=== PATIENT | female | born 1935 | race Caucasian/White ===

== ENCOUNTER 2017-01-31 01:09 | Inpatient (IN) ==
--- NOTE | 2017-01-31 04:19 | Internal Med History&Physical ---
<Gene Lopez - Last Filed: 01/31/17 04:58> Date of Encounter: 01/31/17 Time of Encounter: 04:04 Assessment and Plan (1) Gallbladder abscess Current visit: Yes Status: Acute Patient resting, vitals and labs stable. CT Abdomen: 1. There is a large loculated, septated mass in the right upper quadrant of the abdomen, likely related to sequela of subacute/chronic cholecystitis where there are areas of inflammation in the surrounding soft tissues. These areas of loculation may represent focal abscesses within the wall of the gallbladder. Given the extent of the patient's lung disease and cardiac history she is high risk for surgical intervention. Her current lung condition would likely make her a poor candidate for extubation. Plan: - EKG - Echocardiogram - Pulmonology consult - Antibiotic coverage: Ciprofloxacin and Flagyl - Blood cultures - Gen. surgery consult. (2) COPD (chronic obstructive pulmonary disease) Current visit: Yes Status: Acute Patient with severe COPD, denies oxygen use at home. Patient has barrel chest, very poor bronchial vesicular breath sounds with diminished breath sounds diffusely. Plan: - Continue home inhalers - Dual nebs when necessary - Oxygen as required. - Pulmonology consult prior to surgical option. Qualifiers: Qualified Code(s): J44.9 - Chronic obstructive pulmonary disease, unspecified (3) CAD (coronary artery disease) Current visit: Yes Status: Acute Known CAD, previous smoker and hx of coronary stent. No current EMR records. - Continue Current CAD coverage. Qualifiers: Qualified Code(s): I25.10 - Atherosclerotic heart disease of [place] coronary artery without angina pectoris (4) DVT prophylaxis Current visit: Yes Status: Acute Lovenox 40mg daily Internal Medicine - H&P: HPI History of present illness: Ms. Begum is a 81 year old female with Severe COPD, thyroid disease, CAD, cardiac stent, HLD transferred from outside hospital with finding of gallbladder abscess. Ms. Begum says that over the last 4 weeks she has had difficulty with swallowing and some right upper quadrant abdominal discomfort/ pain. She says that the pain is constant but has not been unbearable. It did not take her appetite but occasionally she would have some regurgitation of clear frothy white mucus. She denies any fevers, chills, sweating, chest pain or palpitations or shortness of breath outside of her normal. She has any diarrhea constipation or bloating. She says that the right upper quadrant tenderness is only been present for 4 weeks and that she has followed up with her PCP who started her on Zantac for GERD. Her symptoms were not improving so she followed up with her PCP who did a abdominal and chest x-ray which she said the PCP was not happy with and ordered an abdominal CT. She said she was notified yesterday that the abdominal CT was abnormal and that she should be seen right away. She denies any other concerns at this time and feels at her baseline. She is hungry and asked if she is able to eat. Past Med Surg Social Fam HX - Past Medical History Medical history: CHF, COPD, hyperlipidemia, hypertension, myocardial infarction , thyroid disease, other Psychiatric history: anxiety, depression - Social History Smoking Status: Former smoker Smokeless Tobacco Status: No Alcohol use: none Drug use: none Internal Medicine - H&P: Meds Albuterol Neb [Proventil Neb] 2.5 mg IH Q8H PRN 10/06/16 [History] Albuterol Sulfate [Albuterol Inhaler] 2 puff IH Q4HR PRN 10/06/16 [History] Aspirin Enteric Coated [Aspirin EC] 81 mg PO DAILY 10/06/16 [History] Calcium Carbonate [Calcium] 500 mg PO DAILY 10/06/16 [History] Calcium Carbonate/Vitamin D3 [Calcium 500 + Vit D 200 Caplet] 1 each PO DAILY [History] Cyanocobalamin (Vitamin B-12) [Vitamin B-12] 1,000 mcg SL DAILY 10/06/16 [ History] Escitalopram [Lexapro] 20 mg PO DAILY 10/06/16 [History] Ferrous Sulfate [Iron] 325 mg PO BID 10/06/16 [History] Folic Acid 0.8 mg PO DAILY 10/06/16 [History] Furosemide [Lasix] 40 mg PO DAILY 10/06/16 [History] Gabapentin [Neurontin] 400 mg PO TID 10/06/16 [History] HYDROcodone/Acet 5/325 mg [[place] 5-325 mg] 1 tab PO Q6H PRN #20 tab 10/06/16 [Rx ] LORazepam [Ativan] 0.5 mg PO HS 10/06/16 [History] Levothyroxine [Synthroid] 100 mcg PO 0630 10/06/16 [History] Loratadine [Allergy Relief] 10 mg PO DAILY 10/06/16 [History] Ondansetron [Zofran] 4 mg PO Q8HR #10 tablet 10/06/16 [Rx] Quetiapine Fumarate [Seroquel] 50 mg PO HS 10/06/16 [History] Ropinirole HCl [Requip] 2 mg PO HS 10/06/16 [History] Tiotropium [Spiriva] 18 mcg IH 0700 10/06/16 [History] Tramadol HCl [Ultram] 50 mg PO QID PRN 10/06/16 [History] Allergies No Known Allergies Allergy (Verified 10/06/16 08:28) All Systems PM: A 10-system review of systems was performed and is negative for pertinent findings except as documented above in the HPI. - Constitutional Constitutional: no chills, no fever(s), no night sweats - EENT Eyes: no change in vision, no discharge, no pain, no photophobia Ears: no ear discharge, no ear pain, no tinnitus Nose, mouth and throat: no dysphagia, no nasal discharge, no neck pain, no sore throat - Cardiovascular Cardiovascular ROS IM: no chest pain, no diaphoresis, no dyspnea, no lightheadedness, no palpitations, no syncope - Respiratory Respiratory: no cough, no dyspnea, no wheezing, no excessive phlegm production - Gastrointestinal Gastrointestinal: abdominal pain, nausea, vomiting, no diarrhea, no hematemesis , no hematochezia, no melena - Genitourinary Genitourinary: no change in urinary stream, no dysuria, no flank pain, no hematuria - Musculoskeletal Musculoskeletal ROS IM: no numbness, no tingling - Integumentary Integumentary IM: no rash, no unusual bruising - Neurological Neurological ROS: no confusion, no convulsions, no focal weakness, no numbness, no tingling, no tremor(s) - Hematologic/Lymphatic Hematologic/Lymphatic: no easy bruising - Constitutional Vitals: Temp Pulse Resp BP Pulse Ox 98.2 F 75 17 138/71 96 01/31/17 03:08 01/31/17 03:08 01/31/17 03:08 01/31/17 03:08 01/31/17 03:08 Exam: General: Patient alert, awake, oriented 3, interactive, in no acute distress HEENT: Cachectic appearing with sunken temporal region, atraumatic, pupils equal reactive to light, nasal cavity patent and open septum median position, oral mucosa moist, poor dentition, neck supple trachea midline no palpable lymphadenopathy, no thyromegaly. There is secondary muscle use with respiratory effort. Chest: Barrel chest with secondary neck muscle use and poor thoracic relaxation with exhalation. Cardiac: Regular rate and rhythm, grade 2/6 systolic ejection murmur no bruits appreciated bilateral carotids, Radial pulses 2+ bilateral, posterior tibial and dorsal pedal pulses 2+ bilateral. Respiratory: Diffuse crackles with diminished bronchial vesicular breath sounds and an expiratory wheeze. Abdomen: Soft, nontender, positive bowel sounds, palpable mass in the right upper quadrant Extremities: Symmetric bilateral, bilateral lower extremities without erythema or edema patient moving all 4 extremities spontaneously. Neurologic: No focal deficits appreciated on examination. Face symmetric, muscle strength symmetric bilateral upper and lower extremities. <Rubin Zavaleta - Last Filed: 01/31/17 06:23> Date of Encounter: 01/31/17 Past Med Surg Social Fam HX - Past Medical History Attestation: Yes The following information was validated with the patient. Source: patient, other (transfer records) Medical history: COPD, myocardial infarction, thyroid disease - Past Surgical History Surgical History: orthopedic, other (foot surgery) - Family History Mother Living Status: Hx Family Respiratory Disorders: Yes Father Living Status: Hx Family Cardiac Disorders: No Hx Family Respiratory Disorders: Yes - Constitutional Vitals: Temp Pulse Resp BP Pulse Ox 98.2 F 75 17 138/71 96 01/31/17 03:08 01/31/17 03:08 01/31/17 03:08 01/31/17 03:08 01/31/17 03:08 General appearance: Present: cooperative, A&O X 3, pleasant, no acute distress - Head Head exam: Present: normal inspection - Eye Eye exam: Present: EOMI, PERRL. Absent: scleral icterus Pupils: Present: normal accommodation - ENT ENT exam: Present: mucous membranes dry, normal exam - Neck Neck exam general surgery: Present: supple. Absent: tenderness - Expanded Neck Exam Neck exam: Absent: carotid bruit - Respiratory Respiratory exam: Present: decreased breath sounds, prolonged expiratory phase, rales, wheezes. Absent: chest wall tenderness, respiratory distress, rhonchi Additional comments: dry crackles suggestive of fibrotic lung disease auscultated on exam - Cardiovascular Cardiovascular exam: Present: RRR, +S1, +S2, systolic murmur (grade 2). Absent : diastolic murmur, irregular rhythm, JVD Additional comments: significant barrel chest on gross exam - GI/Abdominal GI/Abdominal exam: Present: guarding, mass (palpable soft, tender mass/GB just below the right ribs), normal bowel sounds, soft, tenderness. Absent: rebound, splenomegaly - Extremities Exam Extremities exam: Present: full ROM, warm. Absent: calf tenderness, joint swelling, pedal edema - Back Exam Back exam: Absent: CVA tenderness (L), CVA tenderness (R) - Neurological Exam Neurological exam: Present: alert, CN II-XII intact, oriented X3, no focal deficits - Psychiatric Psychiatric exam: Present: normal affect, normal mood - Skin Skin exam: Present: dry, warm. Absent: rash Internal Med - H&P Results - Diagnostic Studies Chest x-ray Status: image reviewed by me (barrel chest, fibrotic/interstitial pattern of lung disease noted ) CT scan - abdomen Status: image reviewed by me (large GB/mass adjacent to and below liver) - Attending Attestation I discussed the patient [place], PMH, ROS, lab data, and exam findings with Dr. Lopez. I then saw and examined patient independently as well. Pt notes significant RUQ pain and symptoms for the last 2-3 weeks. Symptoms have become almost unbearable over the last few days, prompting her to go to the ER [facility]. Work-up revealed significant GB disease on CT of abdomen concerning for GB abscess. Based upon history and exam, this appears chronic. Nonetheless , her symptoms are getting worse over the last few weeks. She will eventually need surgery. However, she carries a significant risk for perioperative morbidity and mortality from her lung and heart disease. Therefore, I recommend maximizing pulmonary status now and consulting Pulmonary for guidance pre-op and assistance post-operatively. She will likely be a difficult extubation. Additionally, she has heart disease and prior VT. She has not exhibited any anginal symptoms in the recent past historically; however, she has been mostly sedentary. Pre-op ECHO will help determine her LVEF. We'll obtain EKG as well. I agree with antibiotic choices. I already spoke with Dr. Galindo and recommend cautious operative approach after above work-up, specialty consultation, and GB ultrasound imaging. Other than my comments noted above and exam findings, I agree with Dr. Lopez's assessment and plan.
[2017-01-31] MEDS ORDERED: *HR* Morphine 2 MG/ML SYRINGE IVP PRN (04:32)
[2017-01-31] MEDS ORDERED: Ondansetron ODT 4 MG TAB.RAPDIS SL PRN (04:32)
[2017-01-31] MEDS ORDERED: Naloxone 0.4 MG/ML INJ IVP PRN (04:32)
[2017-01-31] MEDS ORDERED: Acetaminophen 325 MG TABLET PO PRN (04:32)
[2017-01-31] MEDS ORDERED: Ipratropium/Albuterol Neb 3 ML IH PRN (04:39)
[2017-01-31] MEDS ORDERED: Albuterol 2.5 MG/3 ML NEBULIZER IH PRN (04:58)
[2017-01-31] MEDS ORDERED: *HR* Enoxaparin 40 MG/0.4 ML SYRINGE SQ SCH (06:00)
[2017-01-31] MEDS: Pantoprazole 40 MG VIAL IVP SCH (06:13)
[2017-01-31 06:51] LABS: Basophils % 0.5 %; Eosinophils # 0.2 K/mcL (0.0-0.6); Eosinophils % 2.9 %; Hematocrit 31.8 % (35.3-44.9); Hemoglobin 9.8 g/dL (11.5-15.4); Immature Granulocytes % 0.2 % (0-4); Lymphocytes % 12.5 %; Mean Corpuscular HGB Conc 30.8 g/dL (31.6-35.5); Mean Corpuscular Hemoglobin 30.6 pg (28.0-33.3); Mean Corpuscular Volume 99.4 fL (83.0-100.0); Mean Platelet Volume 9.3 fL (9.4-12.4); Monocytes # 0.7 K/mcL (0.0-1.3); Monocytes % 8.3 %; Neutrophils # 6.2 K/mcL (1.6-8.9); Platelet Count 304 K/mcL (140-400); Red Cell Distribution Width 13.9 % (11.5-14.5); Segmented Neutrophils % 75.6 %
[2017-01-31 06:59] LABS: Albumin 2.7 g/dL (3.5-5.0); Albumin/Globulin Ratio 0.6 (1.1-2.2); Alkaline Phosphatase 132 Units/L (38-126); Aspartate Amino Transferase 11 Units/L (5-34); BUN/Creatinine Ratio 11 (6-26); Bilirubin,Total 0.4 mg/dL (0.2-1.2); Blood Urea Nitrogen 14 mg/dL (7-20); Calcium 9.2 mg/dL (8.6-10.8); Carbon Dioxide 34 mEq/L (19-29); Chloride 98 mEq/L (98-109); Globulin 4.5 g/dL (2.4-3.5); Glucose 93 mg/dL (70-99); Osmolality,Calculated 284 (280-300); Potassium 4.1 mEq/L (3.5-4.5); Sodium 137 mEq/L (136-145); Total Protein 7.2 g/dL (6.0-8.3); eGFR For African Americans 49 (> 60); eGFR For Non-African Americans 40 (> 60)
[2017-01-31 07:00] LABS: Alanine Aminotransferase < 6 Units/L (0-55)
[2017-01-31] MEDS ORDERED: Tiotropium 18 MCG inhalation IH SCH (07:00)
[2017-01-31] MEDS: MetroNIDAZOLE 500 MG/100 ML 500 MG/100 ML BAG IVPB SCH ×2 (08:12→15:57)
[2017-01-31] MEDS: Aspirin Enteric Coated 81 MG Tablet PO SCH (09:56)
[2017-01-31] MEDS: Gabapentin 400 MG CAPSULE PO SCH ×3 (09:56→21:09)
--- NOTE | 2017-01-31 11:55 | Pulmonology Consult Note ---
Date of Encounter: 01/31/17 Time of Encounter: 10:15 Assessment and Plan (1) COPD (chronic obstructive pulmonary disease) Current Visit: Yes Status: Acute Based upon the patient's history as well as her physical examination findings, I suspect that she has quite advanced COPD. The Chem-7 study suggests elevation of the bicarbonate which may be a marker for hypercapnia (ABG is pending). Hypercapnia in this particular individual would bespeak of advanced COPD (in the absence of pulmonary function studies). Although the patient claims she is able to perform volitional activities and care for herself and spouse in the home setting (as well as pets) I suspect she is quite limited from a functional viewpoint. I recommend use of Duoneb nebulized treatments and a short course of systemic steroids to optimize patient's pulmonary status. Obviously, if the patient requires cholecystectomy, this will be a high risk undertaking from a pulmonary viewpoint. I reviewed my impressions with the patient. Qualifiers: COPD type: unspecified COPD Qualified Code(s): J44.9 - Chronic obstructive pulmonary disease, unspecified Code(s): J44.9 - Chronic obstructive pulmonary disease, unspecified SNOMED Code(s): 12410524 History of Present Illness Consult date: 01/31/17 Chief complaint: Abdominal pain, nausea and vomiting History of present illness: This 81-year-old female former cigarette smoker with underlying COPD among other medical issues was admitted to the hospital with complaints of right upper quadrant abdominal discomfort and nausea and vomiting. She is noted the symptoms present for the past several weeks. Over that timeframe, she is also developed anorexia. She denied fevers or chills given these complaints, she sought emergency room evaluation was admitted to the hospital with concern for possible acute cholecystitis. Further evaluation in reference to this issue is still pending including surgical consultation. Patient has at least a 40+-pack-year smoker claiming to have stopped 7 years ago. She utilizes albuterol nebulized treatments in the home setting. She may also utilize another in nondisclosed inhaler (she is unaware of any particular names however). She claims that she is able to perform activities within the home setting with some limitation. She apparently drives and shops and cares for dogs and other pets in the home setting. She notes exertional breathlessness but if she walks at paced rate she is able to perform all volitional activities. She notes difficulty climbing several stairs in reference to breathlessness. She notes a chronic cough in the morning with mucoid sputum expectoration lessened teaspoon on a daily basis. She denies recent admissions to hospital for treatment of respiratory insufficiency or emergency room evaluations for treatment of respiratory symptoms. Past Med Surg Social Fam HX - Past Medical History Medical history: COPD, myocardial infarction, thyroid disease Psychiatric history: anxiety, depression - Past Surgical History Surgical History: orthopedic, other (foot surgery) - Social History Smoking Status: Former smoker Smokeless Tobacco Status: No Alcohol use: none Drug use: none - Family History Mother Living Status: Hx Family Respiratory Disorders: Yes Father Living Status: Hx Family Cardiac Disorders: No Hx Family Respiratory Disorders: Yes Medications and Allergies Albuterol Neb [Proventil Neb] 2.5 mg IH Q8H PRN 10/06/16 [History] Albuterol Sulfate [Albuterol Inhaler] 2 puff IH Q4HR PRN 10/06/16 [History] Aspirin Enteric Coated [Aspirin EC] 81 mg PO DAILY 10/06/16 [History] Calcium Carbonate [Calcium] 500 mg PO DAILY 10/06/16 [History] Calcium Carbonate/Vitamin D3 [Calcium 500 + Vit D 200 Caplet] 1 tab PO DAILY [History] Cyanocobalamin (Vitamin B-12) [Vitamin B-12] 1,000 mcg SL DAILY 10/06/16 [ History] Escitalopram [Lexapro] 20 mg PO DAILY 10/06/16 [History] Ferrous Sulfate [Iron] 325 mg PO BID 10/06/16 [History] Folic Acid 0.8 mg PO DAILY 10/06/16 [History] Furosemide [Lasix] 40 mg PO DAILY 10/06/16 [History] Gabapentin [Neurontin] 400 mg PO DAILY 10/06/16 [History] LORazepam [Ativan] 0.5 mg PO HS 10/06/16 [History] Levothyroxine [Synthroid] 100 mcg PO 0630 10/06/16 [History] Loratadine [Allergy Relief] 10 mg PO DAILY 10/06/16 [History] Ondansetron [Zofran] 4 mg PO Q8HR #10 tablet 10/06/16 [Rx] Quetiapine Fumarate [Seroquel] 50 mg PO HS 10/06/16 [History] Ropinirole HCl [Requip] 2 mg PO HS 10/06/16 [History] Tramadol HCl [Ultram] 100 mg PO Q4H PRN 10/06/16 [History] Ranitidine HCl [Zantac] 150 mg PO BID 01/31/17 [History] Allergies No Known Allergies Allergy (Verified 10/06/16 08:28) All Systems: A 10-system review of systems was performed and is negative for pertinent findings except as documented above in the HPI. - Constitutional Constitutional: as per HPI - Cardiovascular Cardiovascular: as per HPI - Respiratory Respiratory: as per HPI - Gastrointestinal Gastrointestinal: as per HPI Physical Examination Vital Signs: Vital Signs, Last 4 Hours Temp Pulse Resp BP Pulse Ox 01/31/17 10:55 97.6 F 72 17 110/62 95 General appearance: no acute distress, other (The patient appears much older than her stated age awake and alert.) Eyes: nonicteric ENT: oropharynx moist, other (Impaired dentition) Effort: mildly labored Inspection: kyphosis Auscultation: bilateral: diminished breath sounds, other (Prolonged expiratory phase, very faint end expiratory wheeze bilaterally.) Cardiovascular: regular rate and rhythm, murmur noted (Gallop) Gastrointestinal: normoactive bowel sounds, other (Mild tenderness right upper quadrant palpation) Integumentary: normal Extremities: no cyanosis Musculoskeletal: no deformities normal mental status, non-focal exam Results - Laboratory Findings CBC and BMP: 01/31/17 06:22 01/31/17 06:22 Abnormal lab findings: Abnormal lab results RBC 3.20 M/mcL (3.82-4.97) L 01/31/17 06:22 Hgb 9.8 g/dL (11.5-15.4) L 01/31/17 06:22 Hct 31.8 % (35.3-44.9) L 01/31/17 06:22 MCHC 30.8 g/dL (31.6-35.5) L 01/31/17 06:22 MPV 9.3 fL (9.4-12.4) L 01/31/17 06:22 Carbon Dioxide 34 mEq/L (19-29) H 01/31/17 06:22 Creatinine 1.27 mg/dL (0.57-1.11) H 01/31/17 06:22 Est GFR ( Amer) 49 (> 60) L 01/31/17 06:22 Est GFR (Non-Af Amer) 40 (> 60) L 01/31/17 06:22 POC Glucose 103 (58-89) H 01/31/17 11:17 Alkaline Phosphatase 132 Units/L (38-126) H 01/31/17 06:22 Albumin 2.7 g/dL (3.5-5.0) L 01/31/17 06:22 Globulin 4.5 g/dL (2.4-3.5) H 01/31/17 06:22 Albumin/Globulin Ratio 0.6 (1.1-2.2) L 01/31/17 06:22 - Clinical Findings Intake & Output: Intake & Output 01/30/17 01/31/17 01/31/17 23:59 07:59 15:59 Intake Total 100 / 100 100 / 100 Output Total 0 / 0 350 / 350 Balance 100 / 100 -250 / -250 Weight 56.427 kg Consult Discharge Plan - Plan Referrals: Chris Leo, [facility] [Primary Care Provider] -
--- NOTE | 2017-01-31 15:22 | General Surgery Consult Note ---
Date of Encounter: 01/31/17 Time of Encounter: 13:30 History of Present Illness Requesting physician: Rubin Zavaleta History of present illness: 81-year-old female transferred to [facility] from [facility] after presenting there at the instructions of her primary provider for further evaluation and treatment of an abnormal CT. The patient apparently has had abdominal pain nausea and vomiting for the past 3 weeks. As a result of these symptoms patient has been anorexic but denies any fevers, chills, or jaundice. A palpable tender mass was readily apparent in the right upper quadrant. CT of the abdomen and pelvis demonstrated bilateral areas of atelectasis with associated areas scarring and bronchiectasis right lower lobe right middle lobe. History of previous pulmonary infection is noted. A suspected subacute/chronic cholecystitis with markedly enlarged gallbladder measuring approximately 9.9 x 9.4 x 9.8 cm with multi focal septation as described. Gallstones are displaced throughout the gallbladder lumen. Mild induration in the surrounding fat, most pronounced along the inferior margin is also described. Colon was notable for numerous scattered diverticula without adjacent inflammatory changes, no evidence of bowel obstruction. The patient was apparently told that she had a ruptured or perforated gallbladder with instructions to present to the emergency department [facility]. The patient presented to [facility] with ultimate transfer to [facility] for further medical and surgical care/intervention. Since transfer, the N/V and abd tenderness has resolved. Past medical history: Severe COPD; coronary artery disease with history of coronary stent(s) and history of prior NC. No angina pectoris. Hypertension, Hypothyroidism, hyperlipidemia, anxiety, depression Surgical history: Orthopedic fixation pelvic fracture and foot surgery; no described transabdominal surgeries Allergies: No known drug allergies Medications: Albuterol nebulizer 2.5 mg inhaled every 8 hours when necessary Albuterol sulfate inhaler 2 puffs every 4 hours when necessary Aspirin 81 mg by mouth daily Calcium carbonate 500 mg by mouth daily Calcium carbonate/vitamin D3 (calcium 500 mg plus vitamin D 200 mg) one by mouth daily Cyanocobalamin 1000 g sublingually daily Escitalopram 20 mg by mouth daily Ferrous sulfate 325 mg by mouth twice a day Gabapentin 4 mg by mouth 3 times a day Hydrocodone/acetaminophen 5/325 one by mouth every 6 hours when necessary for pain (this prescription appears ) Lorazepam 0.5 mg by mouth daily at bedtime Levothyroxine 100 g by mouth daily Loratadine 10 mg by mouth daily Ondansetron 4 mg by mouth every 8 hours as needed for nausea/vomiting Quetiapine 50 mg by mouth daily at bedtime Ropinirole 2 mg by mouth daily at bedtime Tiotropium 18 g inhaled Tramadol 50 mg by mouth daily ID when necessary for pain Social history: Patient is a smoker admitting to 1 pack per day for over 50 years; she quit approximately 7 years ago. G2, P0, Ab2 Patient denies any alcohol or illicit drug use Physical examination: Elderly female who appears older than her stated age; currently in no acute distress Afebrile, 98.4; pulse 62, respirations 16, blood pressure 132/67. SPO2 on 2 L/m nasal cannula 95-98% Dentition in extremely poor condition with significant overbite Lungs: Chest is kyphotic with pronounced increased A-P diameter. Diffusely diminished breath sounds, faint expiratory wheezes noted bilaterally. Cardiac: Regular rate Abdomen: Nontender, scaphoid with palpable mass right upper quadrant/mid clavicular line. This mass is currently nontender but has been described as tender on presentation to [facility]. Hypoactive bowel sounds. Extremities: Significant joint deformities involving both hands. Laboratories: White count 8.2, hemoglobin 9.8, hematocrit 31.8. Hemoglobin 11.3 /hematocrit 37.5 as late as 09/16/16. Platelet count 304,000. Sodium 137, potassium 4.1, chloride 98, bicarbonate 34, BUN 14, creatinine 1.27. Range 0.94-1.27 dating to 04/24/2015) Total bilirubin 0.4, AST 11, ALT less than 6, alkaline phosphatase 132. Total serum protein 7.2, albumin 2.7. CT and USGB were personally reviewed with [facility] Impression: 81 YOF transferred to [facility] for further evaluation and treatment of approximately 3 week history of right upper quadrant abdominal pain with nausea , vomiting and painful mass in the right upper quadrant. These symptoms are likely related to the radiologic findings of subacute/chronic cholecystitis with areas of inflammation extending into the surrounding soft tissue and loculations within the gallbladder wall likely representing focal abscesses. The patient has significant pulmonary and cardiac disease increasing the risks of surgical intervention but it appears the patient's condition has been maximally improved at the current time. Risks of surgery include hemorrhage, infection, intra-abdominal abscess, bile leak, due to adjacent ducts, vessels, organs and bowel. The patient is at increased risk for cardiac dysrhythmia, NC and pulmonary complications such as respiratory failure and prolonged mechanical ventilation. I have discussed the situation with the patient in detail. She expressed understanding and is willing to proceed with surgery. An open cholecystectomy has been recommended and scheduled in the AM. Past Med Surg Social Fam HX - Past Medical History Medical history: COPD, myocardial infarction, thyroid disease Psychiatric history: anxiety, depression - Past Surgical History Surgical History: orthopedic, other (foot surgery) - Social History Smoking Status: Former smoker Smokeless Tobacco Status: No Alcohol use: none Drug use: none - Family History Mother Living Status: Hx Family Respiratory Disorders: Yes Father Living Status: Hx Family Cardiac Disorders: No Hx Family Respiratory Disorders: Yes Medications and Allergies Albuterol Neb [Proventil Neb] 2.5 mg IH Q8H PRN 10/06/16 [History] Albuterol Sulfate [Albuterol Inhaler] 2 puff IH Q4HR PRN 10/06/16 [History] Aspirin Enteric Coated [Aspirin EC] 81 mg PO DAILY 10/06/16 [History] Calcium Carbonate [Calcium] 500 mg PO DAILY 10/06/16 [History] Calcium Carbonate/Vitamin D3 [Calcium 500 + Vit D 200 Caplet] 1 tab PO DAILY [History] Cyanocobalamin (Vitamin B-12) [Vitamin B-12] 1,000 mcg SL DAILY 10/06/16 [ History] Escitalopram [Lexapro] 20 mg PO DAILY 10/06/16 [History] Ferrous Sulfate [Iron] 325 mg PO BID 10/06/16 [History] Folic Acid 0.8 mg PO DAILY 10/06/16 [History] Furosemide [Lasix] 40 mg PO DAILY 10/06/16 [History] Gabapentin [Neurontin] 400 mg PO DAILY 10/06/16 [History] LORazepam [Ativan] 0.5 mg PO HS 10/06/16 [History] Levothyroxine [Synthroid] 100 mcg PO 0630 10/06/16 [History] Loratadine [Allergy Relief] 10 mg PO DAILY 10/06/16 [History] Ondansetron [Zofran] 4 mg PO Q8HR #10 tablet 10/06/16 [Rx] Quetiapine Fumarate [Seroquel] 50 mg PO HS 10/06/16 [History] Ropinirole HCl [Requip] 2 mg PO HS 10/06/16 [History] Tramadol HCl [Ultram] 100 mg PO Q4H PRN 10/06/16 [History] Ranitidine HCl [Zantac] 150 mg PO BID 01/31/17 [History] Allergies No Known Allergies Allergy (Verified 10/06/16 08:28) Review of Systems All systems PM: A 10-system review of systems was performed and is negative for pertinent findings except as documented above in the HPI. General Surgery Exam Initial Vital Signs Temp Pulse Resp BP Pulse Ox 98.2 F 75 17 138/71 96 01/31/17 03:08 01/31/17 03:08 01/31/17 03:08 01/31/17 03:08 01/31/17 03:08 Exam Initial Vital Signs Temp Pulse Resp BP Pulse Ox 98.2 F 75 17 138/71 96 01/31/17 03:08 01/31/17 03:08 01/31/17 03:08 01/31/17 03:08 01/31/17 03:08 Results - Labs 01/31/17 06:22 01/31/17 06:22 Abnormal lab results RBC 3.20 M/mcL (3.82-4.97) L 01/31/17 06:22 Hgb 9.8 g/dL (11.5-15.4) L 01/31/17 06:22 Hct 31.8 % (35.3-44.9) L 01/31/17 06:22 MCHC 30.8 g/dL (31.6-35.5) L 01/31/17 06:22 MPV 9.3 fL (9.4-12.4) L 01/31/17 06:22 Carbon Dioxide 34 mEq/L (19-29) H 01/31/17 06:22 Creatinine 1.27 mg/dL (0.57-1.11) H 01/31/17 06:22 Est GFR ( Amer) 49 (> 60) L 01/31/17 06:22 Est GFR (Non-Af Amer) 40 (> 60) L 01/31/17 06:22 POC Glucose 103 (58-89) H 01/31/17 11:17 Alkaline Phosphatase 132 Units/L (38-126) H 01/31/17 06:22 Albumin 2.7 g/dL (3.5-5.0) L 01/31/17 06:22 Globulin 4.5 g/dL (2.4-3.5) H 01/31/17 06:22 Albumin/Globulin Ratio 0.6 (1.1-2.2) L 01/31/17 06:22 Diabetes panel 01/31/17 Range/Units 06:22 Sodium 137 (136-145) mEq/L Potassium 4.1 (3.5-4.5) mEq/L Chloride 98 (98-109) mEq/L Carbon Dioxide 34 H (19-29) mEq/L BUN 14 (7-20) mg/dL Creatinine 1.27 H (0.57-1.11) mg/dL Glucose 93 (70-99) mg/dL Calcium 9.2 (8.6-10.8) mg/dL AST 11 (5-34) Units/L ALT < 6 (0-55) Units/L Alkaline Phosphatase 132 H (38-126) Units/L Albumin 2.7 L (3.5-5.0) g/dL Calcium panel 01/31/17 Range/Units 06:22 Calcium 9.2 (8.6-10.8) mg/dL Albumin 2.7 L (3.5-5.0) g/dL Pituitary panel 01/31/17 Range/Units 06:22 Sodium 137 (136-145) mEq/L Potassium 4.1 (3.5-4.5) mEq/L Chloride 98 (98-109) mEq/L Carbon Dioxide 34 H (19-29) mEq/L BUN 14 (7-20) mg/dL Creatinine 1.27 H (0.57-1.11) mg/dL Glucose 93 (70-99) mg/dL Calcium 9.2 (8.6-10.8) mg/dL Adrenal panel 01/31/17 Range/Units 06:22 Sodium 137 (136-145) mEq/L Potassium 4.1 (3.5-4.5) mEq/L Chloride 98 (98-109) mEq/L Carbon Dioxide 34 H (19-29) mEq/L BUN 14 (7-20) mg/dL Creatinine 1.27 H (0.57-1.11) mg/dL Glucose 93 (70-99) mg/dL Calcium 9.2 (8.6-10.8) mg/dL Total Bilirubin 0.4 (0.2-1.2) mg/dL AST 11 (5-34) Units/L ALT < 6 (0-55) Units/L Alkaline Phosphatase 132 H (38-126) Units/L Albumin 2.7 L (3.5-5.0) g/dL All other labs normal. Consult Discharge Plan - Plan Referrals: Chris Leo, DAY CARE ASSISTANT [Primary Care Provider] -
--- NOTE | 2017-01-31 15:26 | Internal Med Progress Note ---
Date of Encounter: 01/31/17 Time of Encounter: 11:30 - Subjective Interval history: Patient has some pain in the right upper quadrant. This is improving. Denies any significant nausea or vomiting. At baseline, patient does have some respiratory difficulty with ambulation. She does not have any chest pain. She is able to climb a flight of stairs with mild respiratory distress. - Constitutional Vitals: Temp Pulse Resp BP Pulse Ox 98.4 F 62 16 132/67 98 01/31/17 14:44 01/31/17 14:44 01/31/17 14:44 01/31/17 14:44 01/31/17 14:44 General appearance: Present: cooperative, A&O X 3, pleasant, no acute distress Internal Medicine: Result - Labs CBC & Chem 7: 01/31/17 06:22 01/31/17 06:22 Labs: Short CBC 01/31/17 Range/Units 06:22 WBC 8.2 (4.3-11.1) K/mcL Hgb 9.8 L (11.5-15.4) g/dL Hct 31.8 L (35.3-44.9) % Plt Count 304 (140-400) K/mcL Neutrophils # 6.2 (1.6-8.9) K/mcL BMP 01/31/17 06:22 Sodium 137 Potassium 4.1 Chloride 98 Carbon Dioxide 34 H BUN 14 Creatinine 1.27 H Glucose 93 Calcium 9.2 Liver Function 01/31/17 Range/Units 06:22 Total Bilirubin 0.4 (0.2-1.2) mg/dL AST 11 (5-34) Units/L ALT < 6 (0-55) Units/L Alkaline Phosphatase 132 H (38-126) Units/L Albumin 2.7 L (3.5-5.0) g/dL - Impressions Impressions Gallbladder Ultrasound 01/31/17 09:00 IMPRESSION: Severely abnormal gallbladder which has the appearance of a complex mass. Gallbladder abscess with severe cholecystitis should be considered although neoplasm cannot be ruled out. RECOMMENDATIONS: Drainage D/ / 01/31/2017 10:35:19 Marcy Solomon MD / elvie Interpreting Provider: Marcy Solomon MD Consult Discharge Plan - Plan Referrals: Chris Leo, MELQUIADES [Primary Care Provider] -
--- NOTE | 2017-01-31 15:29 | Event Note ---
Date of Encounter: 01/31/17 Time of Encounter: 11:30 Patient has some pain in the right upper quadrant. This is improving. Denies any significant nausea or vomiting. At baseline, patient does have some respiratory difficulty with ambulation. She does not have any chest pain. She is able to climb a flight of stairs with mild respiratory difficulty. 2-D echocardiogram shows a normal ejection fraction of 60% with mild diastolic dysfunction of the left ventricle and moderate mitral regurgitation. Ultrasound of the gallbladder shows abnormal gallbladder with appearance of a complex mass concerning for gallbladder ABSCESS with severe cholecystitis. Surgery has been consulted and plan for him inpatient for exploratory cholecystectomy tomorrow. Pulmonary consult appreciated. Patient is at high risk for pulmonary complications from the surgery but currently she does require cholecystectomy.
[2017-01-31] MEDS: Ringers Solution, Lactated 1,000 ML IVC SCH (15:56)
[2017-01-31] MEDS: Ipratropium/Albuterol Neb 3 ML IH SCH ×2 (17:03→22:08)
[2017-01-31 17:14] LABS: ABG Base Excess 6.8 mEq/L (-2.0 to 3.0); ABG HCO3 31.9 mEQ/L (21-27); ABG Oxygen Saturation 90 % (95-98); ABG PCO2 47 mmHg (35-45); ABG PH 7.44 pH Units (7.32-7.45); ABG PO2 56 mmHg (85-104); ABG TCO2 33.3 mEq/L (20-26)
[2017-01-31 17:15] LABS: Blood Gas Liter Flow 21 L/MIN
--- NOTE | 2017-01-31 19:31 | Anesthesia Evaluation PreOp ---
Date of Encounter: 01/31/17 Time of Encounter: 19:10 - Past History Planned Operation: Open Cholecystectomy Cardiac History: CT (2010), CHF, HTN, Hyperlipidemia, Cardiac Stent (2010 Stent X 1) Pulmonary History: Former smoker (stopped 7 years ago), COPD (40+ pack year, Pulmonary consult Duonebs and steroids) RESISTOR COATER History: Denies Any Significant HX Other Medical History: Thyroid Anesthesia History: No Prior Anesthetic Complications : No Alcohol Use: none Drug use: none Medications and Allergies Albuterol Neb [Proventil Neb] 2.5 mg IH Q8H PRN 10/06/16 [History] Albuterol Sulfate [Albuterol Inhaler] 2 puff IH Q4HR PRN 10/06/16 [History] Aspirin Enteric Coated [Aspirin EC] 81 mg PO DAILY 10/06/16 [History] Calcium Carbonate [Calcium] 500 mg PO DAILY 10/06/16 [History] Calcium Carbonate/Vitamin D3 [Calcium 500 + Vit D 200 Caplet] 1 tab PO DAILY [History] Cyanocobalamin (Vitamin B-12) [Vitamin B-12] 1,000 mcg SL DAILY 10/06/16 [ History] Escitalopram [Lexapro] 20 mg PO DAILY 10/06/16 [History] Ferrous Sulfate [Iron] 325 mg PO BID 10/06/16 [History] Folic Acid 0.8 mg PO DAILY 10/06/16 [History] Furosemide [Lasix] 40 mg PO DAILY 10/06/16 [History] Gabapentin [Neurontin] 400 mg PO DAILY 10/06/16 [History] LORazepam [Ativan] 0.5 mg PO HS 10/06/16 [History] Levothyroxine [Synthroid] 100 mcg PO 0630 10/06/16 [History] Loratadine [Allergy Relief] 10 mg PO DAILY 10/06/16 [History] Ondansetron [Zofran] 4 mg PO Q8HR #10 tablet 10/06/16 [Rx] Quetiapine Fumarate [Seroquel] 50 mg PO HS 10/06/16 [History] Ropinirole HCl [Requip] 2 mg PO HS 10/06/16 [History] Tramadol HCl [Ultram] 100 mg PO Q4H PRN 10/06/16 [History] Ranitidine HCl [Zantac] 150 mg PO BID 01/31/17 [History] Allergies No Known Allergies Allergy (Verified 10/06/16 08:28) - Meds/Allergy Pre-op Review Medications Reviewed: Yes Allergies Reviewed: Yes Beta Blockers on Current Med List: No Anesthesia Results - Labs 01/31/17 06:22 01/31/17 06:22 Laboratory Tests 01/31/17 01/31/17 01/31/17 06:22 06:22 17:07 Hgb 9.8 L Hct 31.8 L Plt Count 304 ABG pH 7.44 ABG pCO2 47 H ABG pO2 56 L ABG HCO3 31.9 H ABG Total CO2 33.3 H ABG O2 Saturation 90 L ABG Base Excess 6.8 H Blood Gas Modality RA Sodium 137 Potassium 4.1 Chloride 98 Carbon Dioxide 34 H BUN 14 Creatinine 1.27 H - Imaging EKG: report reviewed (SR) Additional studies: EF 60%, mild left diastolic dysfunction, RVSP 31 mmHg Anesthesia Exam O2 Sat Height 1.52 m Weight 56.427 kg O2 Sat by Pulse Oximetry 91 O2 Sat by Pulse Oximetry 95 O2 Sat by Pulse Oximetry 98 O2 Sat by Pulse Oximetry 95 O2 Sat by Pulse Oximetry 95 O2 Sat by Pulse Oximetry 96 O2 Sat by Pulse Oximetry 98 O2 Sat by Pulse Oximetry 96 Vital Signs Temp Pulse Resp BP Pulse Ox 98.2 F 75 17 138/71 96 01/31/17 03:08 01/31/17 03:08 01/31/17 03:08 01/31/17 03:08 01/31/17 03:08 Height: 5'0 Weight: 124 lbs NPO (# of Hours): MN Pain Scale: 0 - HEENT Pupil (Motor): Pupils equal, EOMI Mallampati: III Denture Type: Upper: Complete Oral Opening: Less than or equal to 3 - RESISTOR COATER LOC: Oriented RESISTOR COATER Motor: Normal RUE, Normal LUE, Normal RLE, Normal LLE, Normal Face RESISTOR COATER Sensory: Normal: RUE, LUE, RLE, LLE, Face - Cardiac Rhythm: Regular Murmur: None JVD: No Carotid Bruit: No - Pulmonary Breath Sounds: bilateral Clear Respiratory Effort: Symmetrical Anesthesia Assess/Plan ASA Score: 3 (COPD CAD HTN) Modified [place] Scale for Level of Consciousness: Cooperative, oriented, and tranquil Anesthetic Plan: General Monitoring Plan: Standard Monitors Recovery Plan: PACU (Discussed mod to high risk for Anesthesia, agrees to proceed)
--- NOTE | 2017-01-31 20:10 | Electrocardiograph Report ---
[address] [address] Test Date: 2017-01-31 Pat Name: Ignacia Begum Department: 115 Room: 3A Gender: F Blood Bank Manager: MARLEN : 1935 Requested By: Gene Lopez Order Number: [id number] Reading MD: Julian Villafana MD Measurements Intervals [place] Rate: 73 P: 18 NM: 171 QRS: 9 QRSD: 116 T: 31 QT: 411 QTc: 437 Interpretive Statements SINUS RHYTHM Electronically Signed On 01-31-2017 20:08:17 EDT by Julian Villafana MD
[2017-02-01] MEDS: MethylPREDNISolone 40 MG/ML VIAL IVP SCH ×3 (02:05→16:15)
[2017-02-01] MEDS: MetroNIDAZOLE 500 MG/100 ML 500 MG/100 ML BAG IVPB SCH ×3 (02:05→16:48)
[2017-02-01] MEDS: Ipratropium/Albuterol Neb 3 ML IH SCH ×4 (03:05→21:05)
[2017-02-01] MEDS: Pantoprazole 40 MG VIAL IVP SCH (05:19)
[2017-02-01] MEDS ORDERED: *HR* Enoxaparin 30 MG/0.3 ML SYRINGE SQ SCH (06:00)
[2017-02-01 08:34] LABS: BUN/Creatinine Ratio 13 (6-26); Basophils % 0.4 %; Blood Urea Nitrogen 11 mg/dL (7-20); Carbon Dioxide 31 mEq/L (19-29); Chloride 101 mEq/L (98-109); Eosinophils # 0.3 K/mcL (0.0-0.6); Eosinophils % 3.1 %; Glucose 95 mg/dL (70-99); Hemoglobin 9.1 g/dL (11.5-15.4); Immature Granulocytes % 0.4 % (0-4); Lymphocytes # 0.7 K/mcL (0.6-4.6); Lymphocytes % 8.7 %; Mean Corpuscular HGB Conc 30.3 g/dL (31.6-35.5); Mean Corpuscular Hemoglobin 30.2 pg (28.0-33.3); Mean Corpuscular Volume 99.7 fL (83.0-100.0); Mean Platelet Volume 9.3 fL (9.4-12.4); Monocytes # 0.7 K/mcL (0.0-1.3); Monocytes % 8.7 %; Neutrophils # 6.4 K/mcL (1.6-8.9); Platelet Count 268 K/mcL (140-400); Potassium 4.1 mEq/L (3.5-4.5); Red Blood Count 3.01 M/mcL (3.82-4.97); Segmented Neutrophils % 78.7 %; Sodium 137 mEq/L (136-145); eGFR For African Americans > 60 (> 60); eGFR For Non-African Americans > 60 (> 60)
[2017-02-01 08:35] LABS: Calcium 8.8 mg/dL (8.6-10.8); Osmolality,Calculated 283 (280-300)
--- NOTE | 2017-02-01 09:15 | Pulmonology Progress Note ---
Date of Encounter: 02/01/17 Time of Encounter: 08:25 Assessment and Plan (1) COPD (chronic obstructive pulmonary disease) Current Visit: Yes Status: Acute The patient has severe COPD based upon her history, physical examination and performance status. The arterial blood gas reveals borderline hypercapnia ( PCO2 of 47 mmHg) likely mainly related to compensation for metabolic alkalosis. Nonetheless, the patient I believe is been optimized from a pulmonary viewpoint for upcoming absolutely essential cholecystectomy. Per my conversation with Dr. Galindo, the patient will undergo an open procedure. She may require care in the postoperative setting within the ICU. Continue current medical measures for treatment of COPD including DuoNeb treatments and a short course of perioperative systemic steroids (these will be completed within the next 24 hours). [facility] [phone] Qualifiers: COPD type: unspecified COPD Qualified Code(s): J44.9 - Chronic obstructive pulmonary disease, unspecified Code(s): J44.9 - Chronic obstructive pulmonary disease, unspecified SNOMED Code(s): 57185949 Subjective Principal diagnosis: COPD, preoperative pulmonary evaluation Interval history: The patient denies any significant breathlessness cough or wheeze this morning. She notes very minimal right upper quadrant abdominal discomfort. Otherwise, she has no specific complaints. It is my understanding that the patient is slated to undergo cholecystectomy ( open procedure) later today with Dr. Galindo. Objective PUL Vital signs: Last Vital Signs Temp 99.2 F 02/01/17 08:26 Pulse 73 02/01/17 08:26 Resp 16 02/01/17 08:26 BP 96/55 02/01/17 08:26 Pulse Ox 93 02/01/17 08:26 General appearance: no acute distress, other (Debilitated, mildly cachectic) Eyes: nonicteric ENT: oropharynx moist Neck: supple Auscultation: bilateral: diminished breath sounds, wheezes (Very faint end expiratory wheeze with forced expiratory maneuver.) Cardiovascular: regular rate and rhythm Gastrointestinal: normoactive bowel sounds, other (Mild right upper quadrant abdominal discomfort to palpation) Integumentary: normal Extremities: no cyanosis Musculoskeletal: other (Mild osteoarthritic deformity of hands) normal mental status, non-focal exam mood appropriate Results - Laboratory Findings CBC and BMP: 02/01/17 08:13 02/01/17 08:13 ABG ABG pH 7.44 pH Units (7.32-7.45) 01/31/17 17:07 ABG pCO2 47 mmHg (35-45) H 01/31/17 17:07 ABG pO2 56 mmHg (85-104) L 01/31/17 17:07 ABG O2 Saturation 90 % (95-98) L 01/31/17 17:07 Abnormal lab findings: Abnormal lab results RBC 3.01 M/mcL (3.82-4.97) L 02/01/17 08:13 Hgb 9.1 g/dL (11.5-15.4) L 02/01/17 08:13 Hct 30.0 % (35.3-44.9) L 02/01/17 08:13 MCHC 30.3 g/dL (31.6-35.5) L 02/01/17 08:13 MPV 9.3 fL (9.4-12.4) L 02/01/17 08:13 ABG pCO2 47 mmHg (35-45) H 01/31/17 17:07 ABG pO2 56 mmHg (85-104) L 01/31/17 17:07 ABG HCO3 31.9 mEQ/L (21-27) H 01/31/17 17:07 ABG Total CO2 33.3 mEq/L (20-26) H 01/31/17 17:07 ABG O2 Saturation 90 % (95-98) L 01/31/17 17:07 ABG Base Excess 6.8 mEq/L (-2.0 to 3.0) H 01/31/17 17:07 Carbon Dioxide 31 mEq/L (19-29) H 02/01/17 08:13 POC Glucose 103 (58-89) H 01/31/17 11:17 Alkaline Phosphatase 132 Units/L (38-126) H 01/31/17 06:22 Albumin 2.7 g/dL (3.5-5.0) L 01/31/17 06:22 Globulin 4.5 g/dL (2.4-3.5) H 01/31/17 06:22 Albumin/Globulin Ratio 0.6 (1.1-2.2) L 01/31/17 06:22 - Clinical Findings Intake & Output: Intake & Output 07/18/17 07/19/17 07/19/17 23:59 07:59 15:59 Intake Total 1160 / 1160 100 / 100 Output Total 0 / 0 550 / 550 Balance 1160 / 1160 -450 / -450 Weight 56.784 kg Consult Discharge Plan - Plan Referrals: Chris Leo, GROCERY STOCKER [Primary Care Provider] -
[2017-02-01] MEDS: Gabapentin 400 MG CAPSULE PO SCH ×3 (09:16→21:07)
[2017-02-01] MEDS: Aspirin Enteric Coated 81 MG Tablet PO SCH (09:16)
[2017-02-01] MEDS ORDERED: *HR* FentaNYL (PF) 100 MCG/2 ML VIAL ONE ×2 (13:42→16:07)
[2017-02-01] MEDS ORDERED: *HR* Propofol 200 MG/20 ML VIAL IVP ONE (13:42)
[2017-02-01] MEDS ORDERED: Lidocaine -MPF 2% 2 ML VIAL ONE (13:43)
[2017-02-01] MEDS ORDERED: *HR* Succinylcholine 200 MG/10 ML VIAL IVP ONE (13:43)
[2017-02-01] MEDS ORDERED: *HR* Rocuronium Bromide 50 MG/5 ML VIAL ONE (13:43)
[2017-02-01] MEDS ORDERED: Bupivacaine/EPI 1:200k 0.25%PF 10 ML VIAL INFILT ONE (14:29)
[2017-02-01] MEDS ORDERED: Bupivacaine/EPI 1:200k 0.25%PF 30 ML VIAL ONE (14:47)
[2017-02-01] MEDS ORDERED: MethylPREDNISolone 40 MG/ML VIAL ONE (15:18)
--- NOTE | 2017-02-01 15:18 | Internal Med Progress Note ---
Date of Encounter: 02/01/17 Time of Encounter: 09:45 - Assessment and plan (1) Gallbladder abscess Current Visit: Yes Status: Acute Assessment and plan: Patient with features of acute and chronic cholecystitis with possible focal abscess. Patient has been evaluated by surgery and recommended cholecystectomy. Patient is Scheduled to Undergo Open Cholecystectomy Today. Patient Has Been Evaluated by Pulmonology and She Does Remain at high risk for pulmonary complications due to surgery. For now patient is medically stable to undergo surgery. (2) Cholecystitis Current Visit: Yes Status: Acute Assessment and plan: Patient with acute and chronic cholecystitis. Awaiting surgery (3) CAD (coronary artery disease) Current Visit: Yes Status: Chronic Assessment and plan: No chest pain. 2-D echocardiogram showed normal ejection fraction with mild diastolic dysfunction of the left ventricle. No pulmonary hypertension noted. Moderate mitral regurgitation present. Qualifiers: Coronary Disease-Associated Artery/Lesion type: [place] artery [place] vs. transplanted heart: [place] heart Associated angina: without angina Qualified Code(s): I25.10 - Atherosclerotic heart disease of [place] coronary artery without angina pectoris (4) COPD (chronic obstructive pulmonary disease) Current Visit: Yes Status: Chronic Assessment and plan: Not in acute exacerbation. However given her chronic lung disease, at risk for pulmonary complications and remained to be on the ventilator and ICU for a short while after surgery. Pulmonary consult appreciated. Continue bronchodilators and O2 supplementation as needed. Qualifiers: COPD type: unspecified COPD Qualified Code(s): J44.9 - Chronic obstructive pulmonary disease, unspecified (5) DVT prophylaxis Current Visit: Yes Status: Acute - Subjective Interval history: Patient is awake and alert. Appears comfortable. Denies any significant abdominal pain nausea or vomiting. On 2 L nasal cannula. Denies any shortness of breath or chest pain. - Constitutional Vitals: Temp Pulse Resp BP Pulse Ox 98.5 F 92 16 115/69 98 02/01/17 11:48 02/01/17 11:48 02/01/17 11:48 02/01/17 11:48 02/01/17 11:48 General appearance: Present: cooperative, A&O X 3, pleasant, no acute distress, answers questions appropriately - Respiratory Respiratory exam: Present: prolonged expiratory phase, wheezes. Absent: accessory muscle use, rales, rhonchi - Cardiovascular Cardiovascular exam: Present: RRR, +S1, +S2. Absent: diastolic murmur, gallop, rubs, systolic murmur - GI/Abdominal GI/Abdominal exam: Present: normal bowel sounds, soft, tenderness (Mild right upper quadrant), no peritoneal signs. Absent: distended - Extremities Exam Extremities exam: Present: warm, radial pulses palpable and symetrical. Absent : calf tenderness, cyanotic, pedal edema Internal Medicine: Result - Labs CBC & Chem 7: 02/01/17 08:13 02/01/17 08:13 Labs: Short CBC 02/01/17 Range/Units 08:13 WBC 8.1 (4.3-11.1) K/mcL Hgb 9.1 L (11.5-15.4) g/dL Hct 30.0 L (35.3-44.9) % Plt Count 268 (140-400) K/mcL Neutrophils # 6.4 (1.6-8.9) K/mcL BMP 02/01/17 08:13 Sodium 137 Potassium 4.1 Chloride 101 Carbon Dioxide 31 H BUN 11 Creatinine 0.84 Glucose 95 Calcium 8.8 - ABG Interpretation ABG results: ABG ABG pH 7.44 pH Units (7.32-7.45) 01/31/17 17:07 ABG pCO2 47 mmHg (35-45) H 01/31/17 17:07 ABG pO2 56 mmHg (85-104) L 01/31/17 17:07 ABG O2 Saturation 90 % (95-98) L 01/31/17 17:07 Consult Discharge Plan - Plan Referrals: Chris Leo, HALL MANAGER [Primary Care Provider] -
[2017-02-01] MEDS ORDERED: *HR* Meperidine 25 MG/ML SYRINGE IVP PRN (15:19)
[2017-02-01] MEDS ORDERED: Ondansetron 4 MG/2 ML VIAL IVP ONE (15:19)
[2017-02-01] MEDS ORDERED: *HR* Metoprolol 5 MG/5 ML VIAL IVP PRN (15:19)
[2017-02-01] MEDS ORDERED: Ondansetron 4 MG/2 ML VIAL ONE (15:59)
[2017-02-01] MEDS ORDERED: Dexamethasone 4 MG/ML VIAL ONE (15:59)
[2017-02-01] MEDS ORDERED: MetroNIDAZOLE 500 MG/100 ML 500 MG/100 ML BAG IVPB ONE (16:47)
[2017-02-01] MEDS ORDERED: Neostigmine Methylsulfate 3 MG/3 ML SYRINGE ONE (16:54)
[2017-02-01] MEDS: Ringers Solution, Lactated 1,000 ML IVC SCH ×3 (17:07→22:41)
[2017-02-01] MEDS ORDERED: *HR* Promethazine 25 MG/ML VIAL ONE (17:30)
--- NOTE | 2017-02-01 17:31 | Operative Note ---
Date of procedure: 02/01/17 Pre-op diagnosis: acute and chronic cholecystitis, cholelithiasis Post-op diagnosis: other (large pericholecystic abscess) Procedure: open cholecystectomy with evacuation large pericholecystic abscess; partial omentectomy Complications: none apparent Anesthesia: GETA Local Anesthetics: 0.25% Sensorcaine HCL with Epinephrine 1:200,000 SubQ (cc) ( 30mL) Surgeon: Mike Galindo Ware[employer] Person Other: MIKE Nunez Estimated blood loss (cc): 500 IV fluids (cc): 1,500 Specimen: aerobic/anaerobic cultures; gallbladder & omentum Condition: stable Disposition: PACU Procedure in Detail: The patient was brought to the operating room where she was placed supine upon the operating room table. The patient was appropriately identified as to person and procedure. The accuracy of this information was confirmed by the procedure team. The gallbladder was readily palpable in the subcostal space essentially midclavicular line. It almost extended to the umbilicus. The patient was intubated and anesthetized under the supervision of Dr. Gene Leigh. The abdomen was prepped and draped in usual sterile fashion. A Leiva catheter was inserted. Several milliliters of 0.25% bupivacaine with 1 200,000 epinephrine was infiltrated into a planned subcostal incision, right upper quadrant. The skin was then incised with a #10 scalpel with dissection extended to the anterior rectus sheath. Bleeding points were controlled with electrocautery. The anterior rectus sheath was incised and the right rectus abdominis muscle divided with the aid of electrocautery. The posterior rectus sheath was grasped with 2 Cassie clamps and elevated, however, the readily palpable mass was adherent to this layer. On incising the posterior rectus sheath copious pus was encountered. Aerobic and anaerobic cultures were obtained. Approximately 400 mL of pus was evacuated. The gallbladder was densely adherent to the surrounding structures including the anterior abdominal wall. I was able to begin dissection laterally beginning at the descending colon. The omentum attached to the right half of the transverse colon required resection. This was accomplished with the aid of a [employer] Harm[employer] dissector. As the dissection proceeded medially, I was able to mobilize the gallbladder away from the colon and duodenum. The liver was densely adherent to the anterior abdominal wall but was mobilized primarily by blunt dissection. As the dissection proceeded, I was able to identify the usual structures and began to dissect the gallbladder from the liver bed liver in a retrograde fashion. Several pulsatile vessels in the liver bed required control using 3-0 chromic ligature ligatures. The cystic artery was identified, isolated, clipped twice proximally, clipped once distally, and divided. The cystic duct was dissected free of the surrounding inflammatory tissue. Suture ligature with 3-0 silk was placed distally on the cystic before it was divided. The gallbladder was removed and sent to pathology for analysis. The perihepatic space, subdiaphragmatic space and the gallbladder fossa were irrigated with warm sterile saline. Bleeding from the liver bed was controlled with ligatures as described and topical application Moncho. A 10 mm Esequiel-Taylor drain was placed in the gallbladder fossa and exited through a separate stab wound right lateral anterior abdominal wall. The drain was secured to the anterior abdominal wall with 3-0 silk. The colon was again inspected and appeared intact. The stomach and duodenum also appeared to be intact. A preliminary sponge count was obtained. Closure was then initiated. The peritoneum and posterior rectus sheath were closed with running interlocking 0 Vicryl. This layer was infiltrated with several milliliters of 0.25% bupivacaine with 1-200, 000 units epinephrine. The anterior rectus sheath was approximated with interrupted [id number] 0 Vicryl and infiltrated with the bupivacaine and epinephrine solution. The skin edges were approximated with steve. Dry sterile dressing were applied. The patient was taken to PACU in stable condition. Needle, sponge, and instrument counts were correct at the close of the case. Total volume of 0.25% bupivacaine with 1-200,000 epinephrine used during this case, 30 mL.
[2017-02-01] MEDS: *HR* Morphine 2 MG/ML SYRINGE IVP PRN ×5 (17:33→18:13)
[2017-02-01] MEDS ORDERED: *HR* Promethazine 25 MG/ML VIAL IVP PRN (17:35)
--- NOTE | 2017-02-01 18:20 | Anesthesia Evaluation Post Op ---
Date of Encounter: 02/01/17 Time of Encounter: 18:19 - Vital Signs Vital Signs: Vital Signs/O2 Sat, Most Current Temp Pulse Resp BP Pulse Ox 97.2 F L 80 16 107/55 100 02/01/17 18:07 02/01/17 18:17 02/01/17 18:17 02/01/17 18:17 02/01/17 18:17 - Lungs Lungs: Clear Ascult./Percussion - Airway Airway: Non-obstructed - Cardiovascular Regular Rate - Mental Status Mental Status: Alert & Oriented, Answers Appropriately - Pain Pain Scale: 2 Pain Scale used: Numeric (1 - 10) - Nausea Vomiting Nausea Vomiting: Not Present - Hydration Hydration: Ice chips, Leiva catheter - Discharge PostOp Status: Transfer Patient to floor
[2017-02-01] MEDS ORDERED: Naloxone 0.4 MG/ML INJ IVP PRN (22:28)
[2017-02-01] MEDS ORDERED: Ringers Solution, Lactated 500 ML IVC ONE (22:28)
[2017-02-01] MEDS ORDERED: *HR* HYDROmorphone (PF) 1 MG/ML SYRINGE IVP PRN (22:28)
[2017-02-01] MEDS: Acetaminophen 325 MG TABLET PO PRN (22:42)
[2017-02-02] MEDS ORDERED: MethylPREDNISolone 40 MG/ML VIAL IVP SCH
[2017-02-02] MEDS: MetroNIDAZOLE 500 MG/100 ML 500 MG/100 ML BAG IVPB SCH ×4 (00:38→23:04)
[2017-02-02] MEDS: Ipratropium/Albuterol Neb 3 ML IH SCH ×4 (03:41→22:03)
[2017-02-02 05:05] LABS: Alanine Aminotransferase 7 Units/L (0-55); Albumin/Globulin Ratio 0.6 (1.1-2.2); Alkaline Phosphatase 95 Units/L (38-126); Aspartate Amino Transferase 37 Units/L (5-34); BUN/Creatinine Ratio 13 (6-26); Bilirubin,Total 0.3 mg/dL (0.2-1.2); Blood Urea Nitrogen 11 mg/dL (7-20); Calcium 8.7 mg/dL (8.6-10.8); Carbon Dioxide 31 mEq/L (19-29); Chloride 103 mEq/L (98-109); Globulin 3.3 g/dL (2.4-3.5); Glucose 164 mg/dL (70-99); Osmolality,Calculated 285 (280-300); Potassium 5.1 mEq/L (3.5-4.5); Sodium 136 mEq/L (136-145); eGFR For African Americans > 60 (> 60); eGFR For Non-African Americans > 60 (> 60)
[2017-02-02 05:06] LABS: Albumin 2.1 g/dL (3.5-5.0); Total Protein 5.4 g/dL (6.0-8.3)
[2017-02-02] MEDS: Pantoprazole 40 MG VIAL IVP SCH (05:43)
[2017-02-02 07:05] LABS: Basophils % 0.1 %; Hemoglobin 6.7 g/dL (11.5-15.4); Immature Granulocytes % 0.6 % (0-4); Immature Platelets 2.7 % (1.1-6.1); Lymphocytes # 0.4 K/mcL (0.6-4.6); Lymphocytes % 2.7 %; Mean Corpuscular HGB Conc 30.5 g/dL (31.6-35.5); Mean Corpuscular Hemoglobin 30.9 pg (28.0-33.3); Mean Corpuscular Volume 101.4 fL (83.0-100.0); Mean Platelet Volume 9.7 fL (9.4-12.4); Monocytes # 0.4 K/mcL (0.0-1.3); Monocytes % 3.1 %; Neutrophils # 12.9 K/mcL (1.6-8.9); Platelet Count 262 K/mcL (140-400); Red Blood Count 2.17 M/mcL (3.82-4.97); Segmented Neutrophils % 93.5 %
--- NOTE | 2017-02-02 08:51 | Pulmonology Progress Note ---
Date of Encounter: 02/02/17 Time of Encounter: 08:25 Assessment and Plan (1) COPD (chronic obstructive pulmonary disease) Current Visit: Yes Status: Chronic The patient has severe COPD based upon her history, physical examination and performance status. The arterial blood gas reveals borderline hypercapnia ( PCO2 of 47 mmHg) mainly related to compensation for metabolic alkalosis. Patient underwent cholecystectomy 02-01-17 via open approach given the magnitude of adhesions and presumptive friability of the gall bladder. She has tolerated the procedure extremely well from a pulmonary viewpoint. Continue current medical measures for treatment of COPD including DuoNeb treatments. Systemic steroids will be discontinued at this time. Given the magnitude of postoperative anemia (hemoglobin of approximately 6.7 g/dL) and the patient's underlying COPD, if follow-up hemoglobin value remains at this level that I would recommend transfusion of one unit of packed red cells. DVT prophylaxis as been ordered as well. Jenny Garvin [phone] Qualifiers: COPD type: unspecified COPD Qualified Code(s): J44.9 - Chronic obstructive pulmonary disease, unspecified Code(s): J44.9 - Chronic obstructive pulmonary disease, unspecified SNOMED Code(s): 69356477 Subjective Principal diagnosis: COPD, preoperative pulmonary evaluation Interval history: The patient denies any significant breathlessness cough or wheeze this morning. She notes mild right upper quadrant abdominal discomfort following cholecystectomy surgery 02-01-17. Otherwise, she has no specific complaints. I teviewed the surgical note form 02-01-17. Objective PUL Vital signs: Last Vital Signs Temp 98.7 F 02/02/17 07:15 Pulse 88 02/02/17 07:15 Resp 16 02/02/17 07:15 BP 96/46 02/02/17 07:15 Pulse Ox 91 02/02/17 07:15 General appearance: no acute distress, other (Patient is awake and alert. Vitals reviewed) Eyes: nonicteric ENT: oropharynx moist Auscultation: bilateral: diminished breath sounds (Cresbard's noted bilaterally.) Cardiovascular: regular rate and rhythm Gastrointestinal: other (Hypoactive bowel sounds, surgical dressing right upper quadrant TONYA drain. I did not inspect the wound.) Extremities: no cyanosis Musculoskeletal: other (Osteoarthritic hand changes.) normal mental status, non-focal exam mood appropriate Results - Laboratory Findings CBC and BMP: 02/02/17 06:29 07/20/17 04:44 ABG ABG pH 7.44 pH Units (7.32-7.45) 01/31/17 17:07 ABG pCO2 47 mmHg (35-45) H 01/31/17 17:07 ABG pO2 56 mmHg (85-104) L 01/31/17 17:07 ABG O2 Saturation 90 % (95-98) L 01/31/17 17:07 Abnormal lab findings: Abnormal lab results WBC 13.8 K/mcL (4.3-11.1) H D 02/02/17 06:29 RBC 2.17 M/mcL (3.82-4.97) L 02/02/17 06:29 Hgb 6.7 g/dL (11.5-15.4) L D 02/02/17 06:29 Hct 22.0 % (35.3-44.9) L 02/02/17 06:29 MCV 101.4 fL (83.0-100.0) H 02/02/17 06:29 MCHC 30.5 g/dL (31.6-35.5) L 02/02/17 06:29 Neutrophils # 12.9 K/mcL (1.6-8.9) H 02/02/17 06:29 Lymphocytes # 0.4 K/mcL (0.6-4.6) L 02/02/17 06:29 ABG pCO2 47 mmHg (35-45) H 01/31/17 17:07 ABG pO2 56 mmHg (85-104) L 01/31/17 17:07 ABG HCO3 31.9 mEQ/L (21-27) H 01/31/17 17:07 ABG Total CO2 33.3 mEq/L (20-26) H 01/31/17 17:07 ABG O2 Saturation 90 % (95-98) L 01/31/17 17:07 ABG Base Excess 6.8 mEq/L (-2.0 to 3.0) H 01/31/17 17:07 Potassium 5.1 mEq/L (3.5-4.5) H D 02/02/17 04:44 Carbon Dioxide 31 mEq/L (19-29) H 02/02/17 04:44 Glucose 164 mg/dL (70-99) H 02/02/17 04:44 POC Glucose 127 (58-89) H 02/01/17 11:50 AST 37 Units/L (5-34) H 02/02/17 04:44 Serum Total Protein 5.4 g/dL (6.0-8.3) L D 02/02/17 04:44 Albumin 2.1 g/dL (3.5-5.0) L D 02/02/17 04:44 Albumin/Globulin Ratio 0.6 (1.1-2.2) L 02/02/17 04:44 - Microbiology Findings Microbiology Findings: Microbiology, Last 48 Hours 01/31/17 06:22 Blood Culture - Preliminary Peripheral Venipuncture No growth. 01/31/17 06:22 Blood Culture - Preliminary Peripheral Venipuncture No growth. 02/01/17 16:40 Wound Culture - Preliminary Abdomen No growth. - Clinical Findings Intake & Output: Intake & Output 02/01/17 02/02/17 02/02/17 23:59 07:59 15:59 Intake Total 700 / 700 100 / 100 Output Total 715 / 715 640 / 640 Balance -15 / -15 -540 / -540 Weight 60.8 kg - VTE Documentation of Mechanical Device: Intermittent pneumatic compression device Consult Discharge Plan - Plan Referrals: Mike Galindo MD [Non-Partnered Physician] - Chris Leo CNP [Primary Care Provider] -
[2017-02-02] MEDS ORDERED: Gabapentin 400 MG CAPSULE PO SCH (09:00)
[2017-02-02] MEDS: Acetaminophen 325 MG TABLET PO PRN ×2 (09:18→18:45)
[2017-02-02] MEDS: Aspirin Enteric Coated 81 MG Tablet PO SCH (10:15)
[2017-02-02] MEDS: Ringers Solution, Lactated 1,000 ML IVC SCH (10:26)
[2017-02-02] MEDS ORDERED: *HR* HYDROmorphone (PF) 1 MG/ML SYRINGE IVP PRN (11:33)
[2017-02-02] MEDS ORDERED: 0.9 % Sodium Chloride 250 ML ONE (12:36)
--- NOTE | 2017-02-02 13:24 | General Surgery Progress Note ---
Date of Encounter: 02/02/17 Time of Encounter: 13:10 Subjective Patient reports: feels better Narrative: General Surgery - POD#1 Patient awake and alert, seated at bedside, consuming lunch. Feeling much improved. Afebrile, currently 98.1; pulse 91, respirations 16, blood pressure 112/62. Early this morning patient was slightly hypotensive at 96/46. Skin: No obvious jaundice Lungs: Clear, no obvious abdominal pain on deep inspiration Abdomen: Soft, nondistended. Patient tolerating diet. Active bowel sounds. Subcostal incision clean and dry - dressing removed TONYA: Ben Bolt full bilious fluid; recorded output 190 mL so far today Laboratories: White count 13.8, hemoglobin 6.7, hematocrit 22.0 - transfusion ordered Potassium 5.1 but other electrolytes, BUN, creatinine within normal limits. Total bilirubin 0.3, AST 37, ALT 7, alkaline phosphatase 95. Impression: Postoperative day 1: Status post open cholecystectomy for acute on chronic cholecystitis with cholelithiasis - doing well. Massive pericholecystic abscess with drainage of approximately 400 mL( cultures pending) Continue IV antibiotics pending the outcome of these cultures Hyperkalemia - D/C Lactated Ringer's Acute blood loss anemia, superimposed on chronic anemia, transfusion packed red blood cells ordered. Prominent bile leak - continue TONYA drainage. If leak persists, may require placement biliary stent. Objective Vital Signs - Last 8 Hours Temp Pulse Resp BP Pulse Ox 02/02/17 12:45 98.1 F 88 16 96/46 02/02/17 11:40 88 02/02/17 11:11 16 96/46 92 02/02/17 10:50 88 02/02/17 10:40 84 02/02/17 07:15 98.7 F 88 16 96/46 91 Intake and Output 02/01/17 02/02/17 02/02/17 23:59 07:59 15:59 Intake Total 700 / 700 100 / 100 1440 / 1440 Output Total 715 / 715 640 / 640 Balance -15 / -15 -540 / -540 1440 / 1440 Intake: IV Fluids 700 / 700 100 / 100 1200 / 1200 Lactated Ringers 1,000 ML 500 / 500 1000 / 1000 @ 75 mls/hr IVC .[id number] [facility] Rx#:[id number] Cipro Premix 200 MG/100 100 / 100 100 / 100 ML 200 mg In 100 ml @ 100 mls/hr IVPB Q12H [facility] Rx# :[id number] Flagyl Premix 500 MG/100 100 / 100 100 / 100 100 / 100 ML 500 mg In 100 ml @ 100 mls/hr IVPB Q8H [facility] Rx#: [id number] Oral 0 / 0 0 / 0 240 / 240 Blood Product 0 / 0 Rbcs Leuko Poor As-1 0 / 0 Unit [id number] Output: Urine 0 / 0 0 / 0 Estimated Blood Loss 500 / 500 Catheter 450 / 450 Wound Drainage 215 / 215 190 / 190 Right Lower Abdomen 155 / 155 190 / 190 Other: Meal Breakfast Percent of Meal Consumed 100% Weight 60.8 kg Patient Weight 02/02/17 23:59 Weight 60.8 kg - Labs 02/02/17 06:29 02/02/17 04:44 Diabetes panel 02/02/17 Range/Units 04:44 Sodium 136 (136-145) mEq/L Potassium 5.1 H D (3.5-4.5) mEq/L Chloride 103 (98-109) mEq/L Carbon Dioxide 31 H (19-29) mEq/L BUN 11 (7-20) mg/dL Creatinine 0.86 (0.57-1.11) mg/dL Glucose 164 H (70-99) mg/dL Calcium 8.7 (8.6-10.8) mg/dL AST 37 H (5-34) Units/L ALT 7 (0-55) Units/L Alkaline Phosphatase 95 (38-126) Units/L Albumin 2.1 L D (3.5-5.0) g/dL Calcium panel 02/02/17 Range/Units 04:44 Calcium 8.7 (8.6-10.8) mg/dL Albumin 2.1 L D (3.5-5.0) g/dL Pituitary panel 02/02/17 Range/Units 04:44 Sodium 136 (136-145) mEq/L Potassium 5.1 H D (3.5-4.5) mEq/L Chloride 103 (98-109) mEq/L Carbon Dioxide 31 H (19-29) mEq/L BUN 11 (7-20) mg/dL Creatinine 0.86 (0.57-1.11) mg/dL Glucose 164 H (70-99) mg/dL Calcium 8.7 (8.6-10.8) mg/dL Adrenal panel 02/02/17 Range/Units 04:44 Sodium 136 (136-145) mEq/L Potassium 5.1 H D (3.5-4.5) mEq/L Chloride 103 (98-109) mEq/L Carbon Dioxide 31 H (19-29) mEq/L BUN 11 (7-20) mg/dL Creatinine 0.86 (0.57-1.11) mg/dL Glucose 164 H (70-99) mg/dL Calcium 8.7 (8.6-10.8) mg/dL Total Bilirubin 0.3 (0.2-1.2) mg/dL AST 37 H (5-34) Units/L ALT 7 (0-55) Units/L Alkaline Phosphatase 95 (38-126) Units/L Albumin 2.1 L D (3.5-5.0) g/dL - VTE Documentation of Mechanical Device: Intermittent pneumatic compression device Consult Discharge Plan - Plan Referrals: Mike Galindo MD [Non-Partnered Physician] - Chris Leo CNP [Primary Care Provider] -
--- NOTE | 2017-02-02 14:20 | Internal Med Progress Note ---
Date of Encounter: 02/02/17 Time of Encounter: 08:30 - Assessment and plan (1) Gallbladder abscess Current Visit: Yes Status: Acute Assessment and plan: Patient doing well postprocedure. Does have significant biliary leak. May need biliary stent placement of this continues. Surgery following. Recommend to continue IV antibiotics. Moderate risk for complications. (2) Cholecystitis Current Visit: Yes Status: Acute Assessment and plan: Acute on chronic cholecystitis status post open cholecystectomy. (3) CAD (coronary artery disease) Current Visit: Yes Status: Chronic Assessment and plan: No acute issues. Continue aspirin. Qualifiers: Coronary Disease-Associated Artery/Lesion type: [place] artery [place] vs. transplanted heart: [place] heart Associated angina: without angina Qualified Code(s): I25.10 - Atherosclerotic heart disease of [place] coronary artery without angina pectoris (4) COPD (chronic obstructive pulmonary disease) Current Visit: Yes Status: Chronic Assessment and plan: Pulmonology following. Recommend discontinuation of steroids at this time as patient doing well post surgery. Continue bronchodilators as needed Qualifiers: COPD type: unspecified COPD Qualified Code(s): J44.9 - Chronic obstructive pulmonary disease, unspecified (5) Anemia Current Visit: Yes Status: Acute Assessment and plan: Acute postsurgical anemia. We will transfuse 1 unit packed red blood cells. Continue to monitor blood counts. Qualifiers: Anemia type: other cause Other causes of anemia: acute posthemorrhagic Qualified Code(s): D62 - Acute posthemorrhagic anemia (6) DVT prophylaxis Current Visit: Yes Status: Acute - Subjective Interval history: Patient underwent exploratory cholecystectomy yesterday. Doing well postprocedure. Pain is well controlled. Denies any new complaints at this time. Tolerating diet well. - Constitutional Vitals: Temp Pulse Resp BP Pulse Ox 98.1 F 91 16 112/62 96 02/02/17 13:09 02/02/17 13:09 02/02/17 13:09 02/02/17 13:09 02/02/17 13:09 General appearance: Present: cooperative, A&O X 3, pleasant, no acute distress, answers questions appropriately - Respiratory Respiratory exam: Present: CTAB. Absent: accessory muscle use, rales, rhonchi, wheezes - Cardiovascular Cardiovascular exam: Present: RRR, +S1, +S2. Absent: diastolic murmur, gallop, rubs, systolic murmur - GI/Abdominal GI/Abdominal exam: Present: normal bowel sounds, soft, tenderness (right uper quadrant), no peritoneal signs. Absent: distended - Extremities Exam Extremities exam: Present: warm, radial pulses palpable and symetrical. Absent : calf tenderness, cyanotic, pedal edema - Neurological Exam Neurological exam: Present: alert, no focal deficits. Absent: facial droop, speech deficit - Skin Skin exam: Present: dry, intact Internal Medicine: Result - Labs CBC & Chem 7: 02/02/17 06:29 02/02/17 04:44 Labs: Short CBC 02/02/17 Range/Units 06:29 WBC 13.8 H D (4.3-11.1) K/mcL Hgb 6.7 L D (11.5-15.4) g/dL Hct 22.0 L (35.3-44.9) % Plt Count 262 (140-400) K/mcL Neutrophils # 12.9 H (1.6-8.9) K/mcL BMP 02/02/17 04:44 Sodium 136 Potassium 5.1 H D Chloride 103 Carbon Dioxide 31 H BUN 11 Creatinine 0.86 Glucose 164 H Calcium 8.7 Liver Function 02/02/17 Range/Units 04:44 Total Bilirubin 0.3 (0.2-1.2) mg/dL AST 37 H (5-34) Units/L ALT 7 (0-55) Units/L Alkaline Phosphatase 95 (38-126) Units/L Albumin 2.1 L D (3.5-5.0) g/dL - ABG Interpretation ABG results: ABG ABG pH 7.44 pH Units (7.32-7.45) 01/31/17 17:07 ABG pCO2 47 mmHg (35-45) H 01/31/17 17:07 ABG pO2 56 mmHg (85-104) L 01/31/17 17:07 ABG O2 Saturation 90 % (95-98) L 01/31/17 17:07 - VTE Documentation of Mechanical Device: Intermittent pneumatic compression device Consult Discharge Plan - Plan Referrals: Mike Galindo MD [Non-Partnered Physician] - Chris Leo CNP [Primary Care Provider] -
[2017-02-02] MEDS: *HR* OxyCODONE/APAP 5/325 TABLET PO PRN ×2 (16:00→21:54)
[2017-02-02] MEDS ORDERED: Ondansetron 4 MG/2 ML VIAL ONE (23:01)
[2017-02-03] MEDS: Ipratropium/Albuterol Neb 3 ML IH SCH ×4 (03:15→22:43)
[2017-02-03] MEDS: Pantoprazole 40 MG VIAL IVP SCH (05:09)
[2017-02-03] MEDS: *HR* OxyCODONE/APAP 5/325 TABLET PO PRN ×2 (05:09→21:33)
[2017-02-03 05:30] LABS: Basophils % 0.1 %; Eosinophils % 0.2 %; Hematocrit 23.4 % (35.3-44.9); Hemoglobin 7.2 g/dL (11.5-15.4); Immature Granulocytes % 0.4 % (0-4); Lymphocytes # 0.6 K/mcL (0.6-4.6); Lymphocytes % 4.7 %; Mean Corpuscular HGB Conc 30.8 g/dL (31.6-35.5); Mean Corpuscular Hemoglobin 30.8 pg (28.0-33.3); Mean Platelet Volume 9.5 fL (9.4-12.4); Monocytes # 0.7 K/mcL (0.0-1.3); Neutrophils # 11.9 K/mcL (1.6-8.9); Platelet Count 229 K/mcL (140-400); Red Blood Count 2.34 M/mcL (3.82-4.97); Red Cell Distribution Width 15.9 % (11.5-14.5); Segmented Neutrophils % 89.6 %
[2017-02-03] MEDS ORDERED: *HR* Enoxaparin 40 MG/0.4 ML SYRINGE SQ SCH (06:00)
[2017-02-03] MEDS: Ondansetron 4 MG/2 ML VIAL IVP PRN ×2 (06:03→14:13)
[2017-02-03] MEDS: MetroNIDAZOLE 500 MG/100 ML 500 MG/100 ML BAG IVPB SCH (08:27)
[2017-02-03] MEDS: Gabapentin 400 MG CAPSULE PO SCH (08:28)
[2017-02-03] MEDS: Aspirin Enteric Coated 81 MG Tablet PO SCH (08:28)
[2017-02-03] MEDS: *HR* Morphine 2 MG/ML SYRINGE IVP PRN ×2 (09:37→14:12)
--- NOTE | 2017-02-03 16:45 | General Surgery Progress Note ---
Date of Encounter: 02/03/17 Time of Encounter: 15:30 Subjective Narrative: General Surgery POD#2 The patient is complaining of cramping abdominal pain, nausea, and the "urge to vomit" but there is been no emesis. The patient is complaining of pain though on my examination no such tenderness was elicited anywhere in the abdomen. The patient has remained afebrile, currently 98.8; pulse 74, respirations 16 , blood pressure 100/60. SPO2 on 2 L/m nasal cannula 94-96% Lungs: Clear to auscultation with no obvious abdominal pain on deep inspiration Abdomen: Soft, nondistended, nontender. Despite complaints of cramping abdominal pain and the "urge to vomit" - dietary intake is moderate to good Subcostal incision clean and appears to be healing well. No obvious fascial defects TONYA bilious drainage appears to have diminished - currently 180 mL for this calendar day; 668 mL for calendar day 02/02/17 Laboratories: White count 13.3, hemoglobin 7.2, hematocrit 23.4. Platelet count 229,000. Potassium 4.3. Operative cultures: Gram-negative justin - final identification and sensitivity still pending Pathology pending Impression: Postoperative day #2, status post open cholecystectomy for acute on chronic cholecystitis, cholelithiasis and massive pericholecystic abscess Acceptable postoperative status. Acute blood loss anemia, superimposed on chronic anemia - slightly improved with transfusion of 1 unit packed cells, however, patient will require additional transfusion. Hyperkalemia - resolved Intraoperative Cultures and path report still pending - preliminary culture results indicate a gram-negative justin; will discontinue metronidazole Objective Vital Signs - Last 8 Hours Temp Pulse Resp BP Pulse Ox 02/03/17 15:54 16 100/60 96 02/03/17 14:38 98.8 F 74 17 100/60 94 02/03/17 11:14 96 02/03/17 10:19 98.5 F 72 16 114/53 94 02/03/17 10:13 16 114/53 96 02/03/17 09:45 93 Intake and Output 02/03/17 02/03/17 02/03/17 07:59 15:59 23:59 Intake Total 780 / 780 Output Total 110 / 110 370 / 370 Balance -110 / -110 410 / 410 Intake: IV Fluids 300 / 300 Cipro Premix 200 MG/100 100 / 100 ML 200 mg In 100 ml @ 100 mls/hr IVPB Q12H [facility] Rx# :[id number] Flagyl Premix 500 MG/100 200 / 200 ML 500 mg In 100 ml @ 100 mls/hr IVPB Q8H [facility] Rx#: [id number] Oral 480 / 480 Output: Urine 0 / 0 300 / 300 Wound Drainage 110 / 110 70 / 70 Right Lower Abdomen 110 / 110 70 / 70 Other: Meal Lunch Percent of Meal Consumed 55% # Voids 1 # Bowel Movements 0 0 Weight 58.6 kg Patient Weight 02/03/17 23:59 Weight 58.6 kg - Labs 02/03/17 05:01 02/03/17 05:01 Diabetes panel 02/03/17 Range/Units 05:01 Potassium 4.3 (3.5-4.5) mEq/L Pituitary panel 02/03/17 Range/Units 05:01 Potassium 4.3 (3.5-4.5) mEq/L Adrenal panel 02/03/17 Range/Units 05:01 Potassium 4.3 (3.5-4.5) mEq/L - VTE Documentation of Mechanical Device: Intermittent pneumatic compression device Consult Discharge Plan - Plan Referrals: Mike Galindo MD [Non-Partnered Physician] - 02/10/17 1:50 pm Chris Leo CNP [Primary Care Provider] -
--- NOTE | 2017-02-03 16:51 | Internal Med Progress Note ---
Date of Encounter: 02/03/17 Time of Encounter: 16:49 - Assessment and plan (1) Gallbladder abscess Current Visit: Yes Status: Acute Assessment and plan: Status post open cholecystectomy. Continue management per surgery recommendations. Patient having some dark red bleeding through TONYA drain. We will hold Lovenox for now. Especially as patient remains anemic. Moderate risk for complications. Continue IV antibiotics. (2) Cholecystitis Current Visit: Yes Status: Acute (3) CAD (coronary artery disease) Current Visit: Yes Status: Chronic Assessment and plan: Continue aspirin. No chest pain. Qualifiers: Coronary Disease-Associated Artery/Lesion type: [place] artery [place] vs. transplanted heart: [place] heart Associated angina: without angina Qualified Code(s): I25.10 - Atherosclerotic heart disease of [place] coronary artery without angina pectoris (4) COPD (chronic obstructive pulmonary disease) Current Visit: Yes Status: Chronic Assessment and plan: Continue bronchodilators and O2 supplementation. Patient would most likely need home oxygen at discharge due to COPD and chronic respiratory failure. Qualifiers: COPD type: unspecified COPD Qualified Code(s): J44.9 - Chronic obstructive pulmonary disease, unspecified (5) Anemia Current Visit: Yes Status: Acute Assessment and plan: Hemoglobin levels remain low. 7.2 today. We will transfuse another unit packed red blood cells per surgery recommendations. Qualifiers: Anemia type: other cause Other causes of anemia: acute posthemorrhagic Qualified Code(s): D62 - Acute posthemorrhagic anemia (6) DVT prophylaxis Current Visit: Yes Status: Acute - Subjective Interval history: Patient was having a lot of abdominal pain this morning. She is also having some diarrhea. Denies any fever chills or night sweats. Continues to have significant output through the TONYA drain. - Constitutional Vitals: Temp Pulse Resp BP Pulse Ox 98.8 F 74 16 100/60 96 02/03/17 14:38 02/03/17 14:38 02/03/17 15:54 02/03/17 15:54 02/03/17 15:54 General appearance: Present: cooperative, A&O X 3, pleasant, no acute distress, answers questions appropriately - Neck Neck exam general surgery: Present: supple, trachea midline. Absent: lymphadenopathy - Respiratory Respiratory exam: Present: CTAB. Absent: accessory muscle use, rales, rhonchi, wheezes - Cardiovascular Cardiovascular exam: Present: RRR, +S1, +S2. Absent: diastolic murmur, gallop, rubs, systolic murmur - GI/Abdominal GI/Abdominal exam: Present: normal bowel sounds, soft, tenderness (Right upper quadrant), no peritoneal signs. Absent: distended - Extremities Exam Extremities exam: Present: warm, radial pulses palpable and symetrical. Absent : calf tenderness, cyanotic, pedal edema - Neurological Exam Neurological exam: Present: alert, oriented X3, no focal deficits. Absent: facial droop, speech deficit - Skin Skin exam: Present: dry, intact Internal Medicine: Result - Labs CBC & Chem 7: 02/03/17 05:01 02/03/17 05:01 Labs: Short CBC 02/03/17 Range/Units 05:01 WBC 13.3 H (4.3-11.1) K/mcL Hgb 7.2 L (11.5-15.4) g/dL Hct 23.4 L (35.3-44.9) % Plt Count 229 (140-400) K/mcL Neutrophils # 11.9 H (1.6-8.9) K/mcL BMP 02/03/17 05:01 Potassium 4.3 - ABG Interpretation ABG results: ABG ABG pH 7.44 pH Units (7.32-7.45) 01/31/17 17:07 ABG pCO2 47 mmHg (35-45) H 01/31/17 17:07 ABG pO2 56 mmHg (85-104) L 01/31/17 17:07 ABG O2 Saturation 90 % (95-98) L 01/31/17 17:07 - VTE Documentation of Mechanical Device: Intermittent pneumatic compression device Consult Discharge Plan - Plan Referrals: Mike Galindo MD [Non-Partnered Physician] - 02/10/17 1:50 pm Chris Leo CNP [Primary Care Provider] -
[2017-02-03] MEDS ORDERED: 0.9 % Sodium Chloride 250 ML ONE (18:22)
[2017-02-04] MEDS: *HR* Morphine 2 MG/ML SYRINGE IVP PRN (01:31)
[2017-02-04] MEDS: Ipratropium/Albuterol Neb 3 ML IH SCH ×4 (05:44→22:41)
[2017-02-04 06:42] LABS: Basophils % 0.2 %; Eosinophils # 0.3 K/mcL (0.0-0.6); Hematocrit 28.9 % (35.3-44.9); Hemoglobin 8.5 g/dL (11.5-15.4); Immature Granulocytes % 0.6 % (0-4); Lymphocytes # 0.9 K/mcL (0.6-4.6); Lymphocytes % 8.1 %; Mean Corpuscular HGB Conc 29.4 g/dL (31.6-35.5); Mean Corpuscular Hemoglobin 29.4 pg (28.0-33.3); Mean Platelet Volume 9.6 fL (9.4-12.4); Monocytes # 0.5 K/mcL (0.0-1.3); Monocytes % 4.8 %; Neutrophils # 9.1 K/mcL (1.6-8.9); Platelet Count 238 K/mcL (140-400); Red Blood Count 2.89 M/mcL (3.82-4.97); Segmented Neutrophils % 83.3 %
[2017-02-04 06:52] LABS: BUN/Creatinine Ratio 10 (6-26); Blood Urea Nitrogen 7 mg/dL (7-20); Calcium 8.5 mg/dL (8.6-10.8); Carbon Dioxide 32 mEq/L (19-29); Chloride 105 mEq/L (98-109); Glucose 115 mg/dL (70-99); Osmolality,Calculated 289 (280-300); Potassium 4.3 mEq/L (3.5-4.5); Sodium 140 mEq/L (136-145); eGFR For African Americans > 60 (> 60); eGFR For Non-African Americans > 60 (> 60)
[2017-02-04] MEDS: Gabapentin 400 MG CAPSULE PO SCH (08:28)
[2017-02-04] MEDS: Aspirin Enteric Coated 81 MG Tablet PO SCH (08:28)
[2017-02-04] MEDS: *HR* OxyCODONE/APAP 5/325 TABLET PO PRN ×2 (08:30→21:32)
--- NOTE | 2017-02-04 09:45 | General Surgery Progress Note ---
Date of Encounter: 02/04/17 Time of Encounter: 09:36 Subjective Patient reports: feels better, pain is less Narrative: General Surgery - POD #3 Patient seated at bedside, indicating that she is feeling well. Prior complaints of crampy abdominal pain have apparently resolved. Patient is consuming breakfast with no complaints of nausea or an "urge to vomit" Patient anxious for discharge Patient continues to be afebrile, currently 98.4; pulse 71, respirations 15, blood pressure 137/76. Lungs: Clear to auscultation; patient requiring oxygen supplementation 2 L/m nasal cannula to maintain saturation 96% Abdomen: Soft, nondistended. Minimal incisional tenderness. The subcostal incisions clean and dry. Bowel sounds are active. Large loose liquidy brown BM TONYA drainage continues to diminish - approximately 230 mL in the last 24 hours; 140 mL so far today Laboratories: Leukocytosis has resolved, 10.9; hemoglobin 8.5, hematocrit 28.9 - after transfusion 2nd unit PRBC Neutrophil percentage continues to return to normal, currently 9.1, previously 11.9. Pathology: Pending Intraoperative cultures- Pansensitive Escherichia coli; patient currently on ciprofloxacin. Impression:Postoperative day 3, status post open cholecystectomy with evacuation of a large kb-cholecystic abscess Acceptable postoperative status. Continue to monitor TONYA output and cbc continue cipro but change to po monitor for persistent diarrhea - if persists, may be due to ATB. (AAC - antibiotic associated colitis) Objective Vital Signs - Last 8 Hours Temp Pulse Resp BP Pulse Ox 02/04/17 06:58 98.4 F 71 15 137/76 96 02/04/17 04:07 98.4 F 75 15 105/68 95 Intake and Output 02/03/17 02/04/17 02/04/17 23:59 07:59 15:59 Intake Total 930 / 930 0 / 0 Output Total 50 / 50 260 / 260 30 / 30 Balance 880 / 880 -260 / -260 -30 / -30 Intake: IV Fluids 100 / 100 Cipro Premix 200 MG/100 100 / 100 ML 200 mg In 100 ml @ 100 mls/hr IVPB Q12H [facility] Rx# :[id number] Oral 480 / 480 0 / 0 Blood Product 350 / 350 Rbcs Leuko Poor As-1 350 / 350 Unit [id number] Output: Urine 0 / 0 150 / 150 Wound Drainage 50 / 50 110 / 110 30 / 30 Right Lower Abdomen 50 / 50 110 / 110 30 / 30 Other: Meal Dinner Percent of Meal Consumed 75% Stool Size Large Stool Consistency loose liquid Stool Color Brown # Voids 1 # Bowel Movements 1 0 Weight 58.5 kg Patient Weight 02/04/17 23:59 Weight 58.5 kg - Labs 02/04/17 06:02 02/04/17 06:02 Diabetes panel 02/04/17 Range/Units 06:02 Sodium 140 (136-145) mEq/L Potassium 4.3 (3.5-4.5) mEq/L Chloride 105 (98-109) mEq/L Carbon Dioxide 32 H (19-29) mEq/L BUN 7 (7-20) mg/dL Creatinine 0.72 (0.57-1.11) mg/dL Glucose 115 H (70-99) mg/dL Calcium 8.5 L (8.6-10.8) mg/dL Calcium panel 02/04/17 Range/Units 06:02 Calcium 8.5 L (8.6-10.8) mg/dL Pituitary panel 02/04/17 Range/Units 06:02 Sodium 140 (136-145) mEq/L Potassium 4.3 (3.5-4.5) mEq/L Chloride 105 (98-109) mEq/L Carbon Dioxide 32 H (19-29) mEq/L BUN 7 (7-20) mg/dL Creatinine 0.72 (0.57-1.11) mg/dL Glucose 115 H (70-99) mg/dL Calcium 8.5 L (8.6-10.8) mg/dL Adrenal panel 02/04/17 Range/Units 06:02 Sodium 140 (136-145) mEq/L Potassium 4.3 (3.5-4.5) mEq/L Chloride 105 (98-109) mEq/L Carbon Dioxide 32 H (19-29) mEq/L BUN 7 (7-20) mg/dL Creatinine 0.72 (0.57-1.11) mg/dL Glucose 115 H (70-99) mg/dL Calcium 8.5 L (8.6-10.8) mg/dL - VTE Documentation of Mechanical Device: Intermittent pneumatic compression device Consult Discharge Plan - Plan Referrals: Mike Galindo MD [Non-Partnered Physician] - 02/10/17 1:50 pm Chris Leo, REGISTERED NURSE SUPERVISOR [Primary Care Provider] -
[2017-02-04] MEDS: Ondansetron 4 MG/2 ML VIAL IVP PRN (14:04)
[2017-02-05 03:49] LABS: Basophils % 0.3 %; Eosinophils # 0.4 K/mcL (0.0-0.6); Hematocrit 27.4 % (35.3-44.9); Hemoglobin 8.3 g/dL (11.5-15.4); Immature Granulocytes % 0.6 % (0-4); Lymphocytes % 9.1 %; Mean Corpuscular HGB Conc 30.3 g/dL (31.6-35.5); Mean Corpuscular Volume 98.9 fL (83.0-100.0); Mean Platelet Volume 9.2 fL (9.4-12.4); Monocytes # 0.6 K/mcL (0.0-1.3); Monocytes % 5.2 %; Neutrophils # 8.6 K/mcL (1.6-8.9); Platelet Count 231 K/mcL (140-400); Red Blood Count 2.77 M/mcL (3.82-4.97); Red Cell Distribution Width 15.3 % (11.5-14.5); Segmented Neutrophils % 80.8 %
[2017-02-05] MEDS: Ipratropium/Albuterol Neb 3 ML IH SCH ×4 (04:13→22:09)
[2017-02-05] MEDS: *HR* OxyCODONE/APAP 5/325 TABLET PO PRN ×3 (06:14→22:03)
[2017-02-05] MEDS: Gabapentin 400 MG CAPSULE PO SCH (07:11)
[2017-02-05] MEDS: Aspirin Enteric Coated 81 MG Tablet PO SCH (07:11)
--- NOTE | 2017-02-05 10:04 | General Surgery Progress Note ---
Date of Encounter: 02/05/17 Time of Encounter: 09:54 Subjective Patient reports: no new complaints, feels better Narrative: General Surgery - POD #4 patient describes "a difficult night" - describes vague puritus and generalized insomnia Anxious to be dicharged home. IV disrupted by patient - she is refusing re insertion Patient afebrile, maximum temperature 90.9 to this morning; pulse 82, respirations 18, blood pressure 122/83. SPO2 93% on 2 L/m nasal Lungs: Clear to auscultation; no obvious pain on deep inspiration Abdomen: Soft, without obvious tenderness. Subcostal incision clean and dry. TONYA output is increased to 390 mL (prior day 230 mL) - so far today, 20 mL bilious fluid. The reservoir is currently full. Labs: White count 10.6, hemoglobin 8.3 with hematocrit 27.4; platelets count 231 ,000. Elevated neutrophils have resolved Impression/Plan: Postoperative day 4, status post open cholecystectomy with evacuation of a large pericholecystic abscess. Acceptable post op status. Low grade temp - 99.2 but leukocytosis and "bandemia" resolved. Persistent postoperative bile leak - if bile leak continues may require biliary stenting. Intraoperative cultures show a pansensitive Escherichia coli - continue Cipro continue to monitor. patient at risk for recurrent abscess gallbladder fossa and subhepatic space. Objective Vital Signs - Last 8 Hours Temp Pulse Resp BP Pulse Ox 02/05/17 07:35 99.2 F 82 18 122/83 93 02/05/17 02:59 98.3 F 95 20 121/63 94 Intake and Output 02/04/17 02/05/17 02/05/17 23:59 07:59 15:59 Output Total 90 / 90 720 / 720 100 / 100 Balance -90 / -90 -720 / -720 -100 / -100 Output: Urine 0 / 0 700 / 700 100 / 100 Wound Drainage 90 / 90 20 / 20 0 / 0 Right Lower Abdomen 90 / 90 20 / 20 0 / 0 Other: # Voids 1 # Bowel Movements 1 0 Weight 57.5 kg Patient Weight 02/05/17 23:59 Weight 57.5 kg - Labs 02/05/17 03:23 02/04/17 06:02 - VTE Documentation of Mechanical Device: Intermittent pneumatic compression device Consult Discharge Plan - Plan Referrals: Mike Galindo MD [Non-Partnered Physician] - 02/10/17 1:50 pm Chris Leo, WAREHOUSE ASSOCIATE DRIVER [Primary Care Provider] -
--- NOTE | 2017-02-05 11:04 | Internal Med Progress Note ---
Date of Encounter: 02/05/17 Time of Encounter: 11:50 - Assessment and plan (1) Cholecystitis Current Visit: Yes Status: Acute Assessment and plan: Acute on chronic cholecystitis status post open cholecystectomy. With biliary drain (2) Gallbladder abscess Current Visit: Yes Status: Acute Assessment and plan: Status post open cholecystectomy. Continue management per surgery recommendations. Patient having some dark red bleeding through TONYA drain. We will hold Lovenox for now. Especially as patient remains anemic. Moderate risk for complications. Continue IV antibiotics. Including Cipro as culture showed Escherichia coli sensitive to Cipro (3) COPD (chronic obstructive pulmonary disease) Current Visit: Yes Status: Chronic Assessment and plan: Continue bronchodilators and O2 supplementation. Patient would most likely need home oxygen at discharge due to COPD and chronic respiratory failure. Qualifiers: COPD type: unspecified COPD Qualified Code(s): J44.9 - Chronic obstructive pulmonary disease, unspecified (4) CAD (coronary artery disease) Current Visit: Yes Status: Chronic Assessment and plan: Continue aspirin. No chest pain. Qualifiers: Coronary Disease-Associated Artery/Lesion type: [place] artery [place] vs. transplanted heart: [place] heart Associated angina: without angina Qualified Code(s): I25.10 - Atherosclerotic heart disease of [place] coronary artery without angina pectoris (5) DVT prophylaxis Current Visit: Yes Status: Acute - Subjective Interval history: Patient presented with cholecystitis and pericolic abscess and underwent surgery. Her biliary drain is still draining bile. Culture showed Escherichia coli sensitive to Cipro. She is on IV Cipro. According to surgery she might need biliary stenting. Surgery has also indicated that she is at higher risk for pericolic or some diaphragmatic abscess - Constitutional Vitals: Temp Pulse Resp BP Pulse Ox 97.9 F 66 16 117/64 97 02/05/17 10:49 02/05/17 10:49 02/05/17 10:49 02/05/17 10:49 02/05/17 10:49 General appearance: Present: cooperative, A&O X 3, pleasant, no acute distress, answers questions appropriately - Head Head exam: Present: atraumatic, normocephalic - Eye Eye exam: Present: PERRL, conjuntiva pink, sclera anicteric Pupils: Present: PERRL - Neck Neck exam general surgery: Present: supple, trachea midline. Absent: lymphadenopathy - Respiratory Respiratory exam: Present: CTAB. Absent: accessory muscle use, rales, rhonchi, wheezes - Cardiovascular Cardiovascular exam: Present: RRR, +S1, +S2. Absent: diastolic murmur, gallop, rubs, systolic murmur - GI/Abdominal GI/Abdominal exam: Absent: distended, tenderness Additional comments: Abdomen is soft and nondistended bowel sounds sluggish no organomegaly surgical site inspection examination per surgery but no surrounding erythema or discharge biliary drain seems to be working okay - Extremities Exam Extremities exam: Present: warm, radial pulses palpable and symetrical. Absent : calf tenderness, cyanotic, pedal edema - Neurological Exam Neurological exam: Present: CN II-XII intact, oriented X3, no focal deficits. Absent: pronater drift, facial droop, speech deficit - Skin Skin exam: Present: dry, intact Internal Medicine: Result - Labs CBC & Chem 7: 02/05/17 03:23 02/04/17 06:02 Labs: Short CBC 02/05/17 Range/Units 03:23 WBC 10.6 (4.3-11.1) K/mcL Hgb 8.3 L (11.5-15.4) g/dL Hct 27.4 L (35.3-44.9) % Plt Count 231 (140-400) K/mcL Neutrophils # 8.6 (1.6-8.9) K/mcL - ABG Interpretation ABG results: ABG ABG pH 7.44 pH Units (7.32-7.45) 01/31/17 17:07 ABG pCO2 47 mmHg (35-45) H 01/31/17 17:07 ABG pO2 56 mmHg (85-104) L 01/31/17 17:07 ABG O2 Saturation 90 % (95-98) L 01/31/17 17:07 - VTE Documentation of Mechanical Device: Intermittent pneumatic compression device Consult Discharge Plan - Plan Referrals: Mike Galindo MD [Non-Partnered Physician] - 02/10/17 1:50 pm Chris Leo CNP [Primary Care Provider] -
--- NOTE | 2017-02-05 11:09 | Internal Med Progress Note ---
Date of Encounter: 02/05/17 Time of Encounter: 11:08 - Assessment and plan (1) Cholecystitis Current Visit: Yes Status: Acute Assessment and plan: Acute on chronic cholecystitis status post open cholecystectomy. With biliary drain (2) Gallbladder abscess Current Visit: Yes Status: Acute Assessment and plan: Status post open cholecystectomy. Continue management per surgery recommendations. Patient having some dark red bleeding through TONYA drain. We will hold Lovenox for now. Especially as patient remains anemic. Moderate risk for complications. Continue IV antibiotics. Including Cipro as culture showed Escherichia coli sensitive to Cipro (3) COPD (chronic obstructive pulmonary disease) Current Visit: Yes Status: Chronic Assessment and plan: Continue bronchodilators and O2 supplementation. Patient would most likely need home oxygen at discharge due to COPD and chronic respiratory failure. Qualifiers: COPD type: unspecified COPD Qualified Code(s): J44.9 - Chronic obstructive pulmonary disease, unspecified (4) CAD (coronary artery disease) Current Visit: Yes Status: Chronic Assessment and plan: Continue aspirin. No chest pain. Qualifiers: Coronary Disease-Associated Artery/Lesion type: [place] artery [place] vs. transplanted heart: [place] heart Associated angina: without angina Qualified Code(s): I25.10 - Atherosclerotic heart disease of [place] coronary artery without angina pectoris (5) DVT prophylaxis Current Visit: Yes Status: Acute - Subjective Interval history: Patient presented with cholecystitis and pericolic abscess and underwent surgery. Her biliary drain is still draining bile. Culture showed Escherichia coli sensitive to Cipro. She is on IV Cipro. According to surgery she might need biliary stenting. Surgery has also indicated that she is at higher risk for pericolic or some diaphragmatic abscess - Constitutional Vitals: Temp Pulse Resp BP Pulse Ox 97.9 F 66 16 117/64 97 02/05/17 10:49 02/05/17 10:49 02/05/17 10:49 02/05/17 10:49 02/05/17 10:49 General appearance: Present: cooperative, A&O X 3, pleasant, no acute distress, answers questions appropriately - Head Head exam: Present: atraumatic, normocephalic - Eye Eye exam: Present: PERRL, conjuntiva pink, sclera anicteric Pupils: Present: PERRL - Neck Neck exam general surgery: Present: supple, trachea midline. Absent: lymphadenopathy - Respiratory Respiratory exam: Present: CTAB. Absent: accessory muscle use, rales, rhonchi, wheezes - Cardiovascular Cardiovascular exam: Present: RRR, +S1, +S2. Absent: diastolic murmur, gallop, rubs, systolic murmur - GI/Abdominal GI/Abdominal exam: Absent: distended, tenderness Additional comments: Abdomen is soft and nondistended bowel sounds sluggish no organomegaly surgical site inspection examination per surgery but no surrounding erythema or discharge biliary drain seems to be working okay - Extremities Exam Extremities exam: Present: warm, radial pulses palpable and symetrical. Absent : calf tenderness, cyanotic, pedal edema - Neurological Exam Neurological exam: Present: CN II-XII intact, oriented X3, no focal deficits. Absent: pronater drift, facial droop, speech deficit - Skin Skin exam: Present: dry, intact Internal Medicine: Result - Labs CBC & Chem 7: 02/05/17 03:23 02/04/17 06:02 Labs: Short CBC 02/05/17 Range/Units 03:23 WBC 10.6 (4.3-11.1) K/mcL Hgb 8.3 L (11.5-15.4) g/dL Hct 27.4 L (35.3-44.9) % Plt Count 231 (140-400) K/mcL Neutrophils # 8.6 (1.6-8.9) K/mcL - ABG Interpretation ABG results: ABG ABG pH 7.44 pH Units (7.32-7.45) 01/31/17 17:07 ABG pCO2 47 mmHg (35-45) H 01/31/17 17:07 ABG pO2 56 mmHg (85-104) L 01/31/17 17:07 ABG O2 Saturation 90 % (95-98) L 01/31/17 17:07 - VTE Documentation of Mechanical Device: Intermittent pneumatic compression device Consult Discharge Plan - Plan Referrals: Mike Galindo MD [Non-Partnered Physician] - 02/10/17 1:50 pm Chris Leo CNP [Primary Care Provider] -
[2017-02-06] MEDS: Ipratropium/Albuterol Neb 3 ML IH SCH ×4 (04:34→22:46)
[2017-02-06] MEDS: Aspirin Enteric Coated 81 MG Tablet PO SCH (07:56)
[2017-02-06] MEDS: *HR* OxyCODONE/APAP 5/325 TABLET PO PRN (07:56)
[2017-02-06] MEDS: Gabapentin 400 MG CAPSULE PO SCH (07:57)
--- NOTE | 2017-02-06 12:10 | General Surgery Progress Note ---
Date of Encounter: 02/06/17 Time of Encounter: 11:50 Subjective Patient reports: no new complaints Narrative: General Surgery - POD #5 Patient feeling well, voicing no complaints. Patient describes "a good night ". The patient is anxious to be discharged. patient remains afebrile, 98.3; VSS -pulse 73, respirations 16, blood pressure 125/76 Lungs: Clear with diminished breath sounds both bases - this is likely baseline Abdomen: Soft, nondistended, nontender. Subcostal incision clean and dry and healing nicely. TONYA output 110 mL recorder for 02/05/17; 240 mL so far today - the fluid remains bilious. Operative Pathology pending CBC for today pending Will get Hb scan to assess bile leak. Objective Vital Signs - Last 8 Hours Temp Pulse Resp BP Pulse Ox 02/06/17 10:41 98.3 F 73 16 125/76 96 02/06/17 10:22 16 125/76 99 02/06/17 07:24 98.5 F 86 18 135/69 91 Intake and Output 02/05/17 02/06/17 02/06/17 23:59 07:59 15:59 Intake Total 0 / 0 0 / 0 Output Total 290 / 290 600 / 600 40 / 40 Balance -290 / -290 -600 / -600 -40 / -40 Intake: Oral 0 / 0 0 / 0 Output: Urine 250 / 250 400 / 400 0 / 0 Wound Drainage 40 / 40 200 / 200 40 / 40 Right Lower Abdomen 40 / 40 200 / 200 40 / 40 Other: Meal Dinner Percent of Meal Consumed 100% # Bowel Movements 0 0 - Labs 02/05/17 03:23 02/04/17 06:02 - VTE Documentation of Mechanical Device: Intermittent pneumatic compression device Consult Discharge Plan - Plan Referrals: Mike Galindo MD [Non-Partnered Physician] - 02/10/17 1:50 pm Chris Leo CNP [Primary Care Provider] -
[2017-02-06 14:09] LABS: Basophils % 0.4 %; Eosinophils # 0.4 K/mcL (0.0-0.6); Eosinophils % 4.2 %; Hematocrit 32.1 % (35.3-44.9); Hemoglobin 9.8 g/dL (11.5-15.4); Immature Granulocytes % 0.5 % (0-4); Lymphocytes # 1.1 K/mcL (0.6-4.6); Lymphocytes % 10.7 %; Mean Corpuscular HGB Conc 30.5 g/dL (31.6-35.5); Mean Corpuscular Hemoglobin 30.8 pg (28.0-33.3); Mean Corpuscular Volume 100.9 fL (83.0-100.0); Mean Platelet Volume 9.4 fL (9.4-12.4); Monocytes # 0.5 K/mcL (0.0-1.3); Monocytes % 4.8 %; Platelet Count 315 K/mcL (140-400); Red Blood Count 3.18 M/mcL (3.82-4.97); Red Cell Distribution Width 15.4 % (11.5-14.5); Segmented Neutrophils % 79.4 %
--- NOTE | 2017-02-06 16:43 | Internal Med Progress Note ---
Date of Encounter: 02/06/17 Time of Encounter: 16:41 - Assessment and plan (1) Cholecystitis Current Visit: Yes Status: Acute Assessment and plan: Acute on chronic cholecystitis status post open cholecystectomy. With biliary drain (2) Gallbladder abscess Current Visit: Yes Status: Acute Assessment and plan: Status post open cholecystectomy. Continue management per surgery recommendations. Patient having some dark red bleeding through TONYA drain. We will hold Lovenox for now. Especially as patient remains anemic. Moderate risk for complications. Continue IV antibiotics. Including Cipro as culture showed Escherichia coli sensitive to Cipro (3) COPD (chronic obstructive pulmonary disease) Current Visit: Yes Status: Chronic Assessment and plan: Continue bronchodilators and O2 supplementation. Patient would most likely need home oxygen at discharge due to COPD and chronic respiratory failure. Qualifiers: COPD type: unspecified COPD Qualified Code(s): J44.9 - Chronic obstructive pulmonary disease, unspecified (4) CAD (coronary artery disease) Current Visit: Yes Status: Chronic Assessment and plan: Continue aspirin. No chest pain. Qualifiers: Coronary Disease-Associated Artery/Lesion type: [place] artery [place] vs. transplanted heart: [place] heart Associated angina: without angina Qualified Code(s): I25.10 - Atherosclerotic heart disease of [place] coronary artery without angina pectoris (5) DVT prophylaxis Current Visit: Yes Status: Acute - Subjective Interval history: Patient presented with cholecystitis and pericolic abscess and underwent surgery. Her biliary drain is still draining bile. Culture showed Escherichia coli sensitive to Cipro. She is on IV Cipro. According to surgery she might need biliary stenting if biliary leak will not stop. Surgery has also indicated that she is at higher risk for pericolic or sub diaphragmatic abscess. Today she will go for hb scan Otherwise patient is quite asymptomatic ambulatory and tolerating food. She is very eager to go home. Once her biliary leak issue is resolved she plans to be discharged to home. - Constitutional Vitals: Temp Pulse Resp BP Pulse Ox 98.2 F 75 17 128/70 92 02/06/17 14:50 02/06/17 14:50 02/06/17 14:50 02/06/17 14:50 02/06/17 14:50 General appearance: Present: cooperative, A&O X 3, pleasant, no acute distress, answers questions appropriately - Head Head exam: Present: atraumatic, normocephalic - Eye Eye exam: Present: PERRL, conjuntiva pink, sclera anicteric Pupils: Present: PERRL - Neck Neck exam general surgery: Present: supple, trachea midline. Absent: lymphadenopathy - Respiratory Respiratory exam: Present: CTAB. Absent: accessory muscle use, rales, rhonchi, wheezes - Cardiovascular Cardiovascular exam: Present: RRR, +S1, +S2. Absent: diastolic murmur, gallop, rubs, systolic murmur - GI/Abdominal GI/Abdominal exam: Present: normal bowel sounds, soft, no peritoneal signs. Absent: distended, tenderness - Extremities Exam Extremities exam: Present: warm, radial pulses palpable and symetrical. Absent : calf tenderness, cyanotic, pedal edema - Neurological Exam Neurological exam: Present: CN II-XII intact, oriented X3, no focal deficits. Absent: pronater drift, facial droop, speech deficit - Skin Skin exam: Present: dry, intact Internal Medicine: Result - Labs CBC & Chem 7: 02/06/17 13:58 02/04/17 06:02 Labs: Short CBC 02/06/17 Range/Units 13:58 WBC 10.1 (4.3-11.1) K/mcL Hgb 9.8 L D (11.5-15.4) g/dL Hct 32.1 L (35.3-44.9) % Plt Count 315 (140-400) K/mcL Neutrophils # 8.0 (1.6-8.9) K/mcL - ABG Interpretation ABG results: ABG ABG pH 7.44 pH Units (7.32-7.45) 01/31/17 17:07 ABG pCO2 47 mmHg (35-45) H 01/31/17 17:07 ABG pO2 56 mmHg (85-104) L 01/31/17 17:07 ABG O2 Saturation 90 % (95-98) L 01/31/17 17:07 - Impressions Impressions Bile Acid Absorption NM 02/06/17 11:44 IMPRESSION: Evidence of bile leak with activity in the right upper quadrant drainage catheter. No free intraperitoneal spill is demonstrated. D/ / Rajan Russo MD / Rajan Russo MD Interpreting Provider: Rajan Russo MD - VTE Documentation of Mechanical Device: Intermittent pneumatic compression device Consult Discharge Plan - Plan Referrals: Mike Galindo MD [Non-Partnered Physician] - 02/10/17 1:50 pm Chris Leo CNP [Primary Care Provider] -
[2017-02-07] MEDS: *HR* OxyCODONE/APAP 5/325 TABLET PO PRN (02:30)
[2017-02-07] MEDS: Ipratropium/Albuterol Neb 3 ML IH SCH ×2 (04:46→10:42)
[2017-02-07] MEDS: Aspirin Enteric Coated 81 MG Tablet PO SCH (08:48)
[2017-02-07] MEDS: Gabapentin 400 MG CAPSULE PO SCH (08:49)
[2017-02-07] MEDS ORDERED: Ipratropium/Albuterol Neb 3 ML IH PRN (12:09)
--- NOTE | 2017-02-07 15:14 | General Surgery Progress Note ---
Date of Encounter: 02/07/17 Time of Encounter: 14:45 Subjective Patient reports: no new complaints Narrative: General Surgery POD #6 patient feeling well. Voicing no complaint except unable to sleep. Remains afebrile, currently 98.4; hemodynamically stable with pulse 78, respirations 16, blood pressure 134/81. SPO2 on 2 L/m nasal cannula 95-96%. Lungs: Clear, no obvious abdominal pain with deep inspiration Abdomen: Soft, nontender. Subcostal incision is clean and healing well. Active bowels. Patient tolerating diet without nausea or vomiting. Patient moving bowels without difficulty - passing formed stool. TONYA output - 350 mL 4 calendar day 02/06/17. 70 mL so far today HP scan shows a controlled bile leak; tracer activity is seen within the right upper quadrant drainage catheter beginning at 15 minutes. No free intraperitoneal tracer is demonstrated. Tracer is evident in the hepatobiliary tree with passage into the small bowel. Pathology: Acute and chronic cholecystitis with pericholecystic abscess - consistent with intraoperative findings. Omentum with focal acute and chronic inflammation. Moderately differentiated adenocarcinoma of the gallbladder measuring approximately 4.5 x 1.5 x 1 cm. Margins are described as less than or equal to 1 mm. With 3 of 3 lymph nodes demonstrating metastatic disease. Current staging pT2, pN1 pMn/a Impression: Well-differentiated adenocarcinoma of the gallbladder. This was discussed extensively with the patient. The patient may require additional surgery which could include hepatic resection. Based on these findings I have recommended transfer to A tertiary care center such as [facility] or [facility] to consider further evaluation and treatment. This was also discussed with Dr Narayan, Hospitalist. The patient expressed understanding and is willing to be transferred. Objective Vital Signs - Last 8 Hours Temp Pulse Resp BP Pulse Ox 02/07/17 12:07 98.4 F 78 16 134/81 96 02/07/17 10:42 18 95 02/07/17 09:00 98.4 F 78 16 134/81 96 02/07/17 07:15 98.2 F 82 16 135/61 94 Intake and Output 02/06/17 02/07/17 02/07/17 23:59 07:59 15:59 Intake Total 240 / 240 200 / 200 240 / 240 Output Total 350 / 350 30 / 30 440 / 440 Balance -110 / -110 170 / 170 -200 / -200 Intake: Oral 240 / 240 200 / 200 240 / 240 Output: Urine 300 / 300 400 / 400 Wound Drainage 50 / 50 30 / 30 40 / 40 Right Lower Abdomen 50 / 50 30 / 30 40 / 40 Other: Meal Dinner Lunch Percent of Meal Consumed 65% 100% Stool Size Moderate Stool Consistency soft Stool Color Brown # Voids 1 1 # Bowel Movements 1 Weight 57.7 kg Patient Weight 02/07/17 23:59 Weight 57.7 kg - Labs 02/06/17 13:58 02/04/17 06:02 - VTE Documentation of Mechanical Device: Intermittent pneumatic compression device Consult Discharge Plan - Plan Referrals: Mike Galindo MD [Non-Partnered Physician] - 02/10/17 1:50 pm Chris Leo CNP [Primary Care Provider] -
--- NOTE | 2017-02-07 17:33 | Discharge Summary ---
Date of Encounter: 02/07/17 Time of Encounter: 13:00 - Discharge Diagnosis (1) Cholecystitis Priority: Primary Status: Chronic (2) Gallbladder abscess Priority: Primary Status: Acute (3) Hypothyroidism Priority: Secondary Status: Chronic Qualifiers: Hypothyroidism type: unspecified Qualified Code(s): E03.9 - Hypothyroidism , unspecified (4) Anxiety Priority: Secondary Status: Chronic (5) Depression Priority: Secondary Status: Chronic Qualifiers: Depression Type: unspecified Qualified Code(s): F32.9 - Major depressive disorder, single episode, unspecified (6) COPD (chronic obstructive pulmonary disease) Priority: Secondary Status: Chronic Qualifiers: COPD type: unspecified COPD Qualified Code(s): J44.9 - Chronic obstructive pulmonary disease, unspecified (7) CAD (coronary artery disease) Priority: Secondary Status: Chronic Qualifiers: Coronary Disease-Associated Artery/Lesion type: [place] artery [place] vs. transplanted heart: [place] heart Associated angina: without angina Qualified Code(s): I25.10 - Atherosclerotic heart disease of [place] coronary artery without angina pectoris - Discharge Medications Home Medications: Albuterol Neb [Proventil Neb] 2.5 mg IH Q8H PRN 10/06/16 [History] Albuterol Sulfate [Albuterol Inhaler] 2 puff IH Q4HR PRN 10/06/16 [History] Aspirin Enteric Coated [Aspirin EC] 81 mg PO DAILY 10/06/16 [History] Calcium Carbonate [Calcium] 500 mg PO DAILY 10/06/16 [History] Calcium Carbonate/Vitamin D3 [Calcium 500-Vit D3 200 Caplet] 1 tab PO DAILY [History] Cyanocobalamin (Vitamin B-12) [Vitamin B-12] 1,000 mcg SL DAILY 10/06/16 [ History] Escitalopram [Lexapro] 20 mg PO DAILY 10/06/16 [History] Ferrous Sulfate [Iron] 325 mg PO BID 10/06/16 [History] Folic Acid 0.8 mg PO DAILY 10/06/16 [History] Furosemide [Lasix] 40 mg PO DAILY 10/06/16 [History] Gabapentin [Neurontin] 400 mg PO DAILY 10/06/16 [History] LORazepam [Ativan] 0.5 mg PO HS 10/06/16 [History] Levothyroxine [Synthroid] 100 mcg PO 0630 10/06/16 [History] Loratadine [Allergy Relief] 10 mg PO DAILY 10/06/16 [History] Ondansetron [Zofran] 4 mg PO Q8HR #10 tablet 10/06/16 [Rx] Quetiapine Fumarate [Seroquel] 50 mg PO HS 10/06/16 [History] Ropinirole HCl [Requip] 2 mg PO HS 10/06/16 [History] Tramadol HCl [Ultram] 100 mg PO Q4H PRN 10/06/16 [History] Ranitidine HCl [Zantac] 150 mg PO BID 01/31/17 [History] Ciprofloxacin [Cipro] 500 mg PO BID tab 02/07/17 [Rx] Ipratropium/Albuterol Neb [Duoneb] 3 ml IH [id number] PRN inh 02/07/17 [Rx] Omeprazole [PriLOSEC] 20 mg PO DAILY@0630 02/07/17 [Rx] OxyCODONE/APAP 5/325 [Percocet 5/325 MG] 1 each PO Q6HR PRN tab 02/07/17 [Rx] Allergies/Adverse Reactions: Allergies No Known Allergies Allergy (Verified 10/06/16 08:28) Procedures/tests Complete & Pending: Procedures Performed prior 72 hours Category Date Time Status NM hepatobiliary [NM] Routine Exams 02/06/17 11:44 Completed Date of admission: 01/31/17 06:34 Primary care physician: Chris Leo CNP Consults: 01/31/17 03:55 Consult to Bed Bug Exterminator [CONS] Routine Reason for SW Consult: Patient cares for ill and seems as if she is unable to fully care for herself. 01/31/17 04:32 Consult to Surgery [CONS] Routine Consulting Provider: Surgery [facility] - [place] Reason for Consult: Gallbladder abscess Call Completed: Yes 01/31/17 04:41 Consult to Pulmonology [CONS] Routine Consulting Provider: Pulm Crit [facility] Sleep [place] Reason for Consult: high risk resp pre-op cholecystectomy Call Completed: No Discharging clinician: Gisele Narayan Anticipated date of discharge: 02/07/17 - Patient Status Disposition: Transfer Critical Access Hosp Condition: Fair Functional capacity at discharge: independent ambulation Overall status at discharge: patient is progressing back to baseline - Discharge Instructions Follow Up With: Mike Galindo MD [Non-Partnered Physician] - 02/10/17 1:50 pm Chris Leo CNP [Primary Care Provider] - Hospital course: Ms. Begum is a 81 year old female with the above medical problems who was admitted with abdominal pain, nausea and vomiting. CT abdomen/pelvis done in the emergency room showed a large loculated and septated mass in the right upper quadrant of abdomen which could represent subacute or chronic cholecystitis versus focal abscesses in the wall of gallbladder. Patient was started on conservative medical management with bowel rest, IV hydration, empiric IV antibiotics and symptomatic treatment. Surgery was consulted and patient underwent open cholecystectomy and drainage of pericholecystic abscess on 02/01/2017. Patient was noted to have an uneventful postoperative recovery, currently tolerates oral diet with improvement in leukocytosis. Patient continues to have bile leak in her TONYA drain. Hepatobiliary scan showed stable bile leak and activity in the right upper quadrant catheter. Surgical pathology report today shows well-differentiated adenocarcinoma of gallbladder, lymph node positive. Case discussed with surgery, and patient may need further surgical exploration at this point like partial liver resection, biliary stent placement etc. and transferred to tertiary care center has been recommended. Case has been discussed with the transfer center at [facility] in [place], [place] and patient is being accepted to the hospitalist service for surgical consultation. Patient is medically stable and agreeable to this transfer. - Time Spent with Patient Total time spent providing and/or coordinating discharge services: Greater than 30 minutes (45 min) - Constitutional Vitals: Temp Pulse Resp BP Pulse Ox 98.2 F 78 16 126/67 93 02/07/17 16:25 02/07/17 16:25 02/07/17 16:25 02/07/17 16:25 02/07/17 16:25 General appearance: Present: cooperative, A&O X 3, answers questions appropriately - Respiratory Respiratory exam: Present: rhonchi (Scattered rhonchi bilaterally posteriorly). Absent: accessory muscle use, rales, wheezes - Cardiovascular Cardiovascular exam: Present: RRR, +S1, +S2. Absent: diastolic murmur, gallop, rubs, systolic murmur - VTE Documentation of Mechanical Device: Intermittent pneumatic compression device
[2017-02-07] MEDS: Acetaminophen 325 MG TABLET PO PRN (21:30)
[2017-02-08] MEDS: Gabapentin 400 MG CAPSULE PO SCH (08:09)
[2017-02-08] MEDS: Aspirin Enteric Coated 81 MG Tablet PO SCH (08:09)
[2017-02-08 15:36] VITALS: BP 126/67
--- NOTE | 2017-02-08 15:55 | Internal Med Progress Note ---
Date of Encounter: 02/08/17 Time of Encounter: 12:30 - Assessment and plan (1) Cholecystitis Current Visit: Yes Status: Inactive Assessment and plan: Possible subacute/chronic cholecystitis with pericholecystic abscess. Surgery on board status post open cholecystectomy and drainage of abscess with TONYA drain intact, done on 02/01/2017. Pain is well controlled and patient tolerates oral diet at this time. Noted to have continued bile leak. Intraoperative pathology report confirms adenocarcinoma of the gallbladder, lymph node positive. Patient may require further surgery involving the liver and biliary system along with oncology evaluation. She has been accepted to [facility] for further management, awaiting availability of beds. (2) Gallbladder abscess Current Visit: Yes Status: Acute Assessment and plan: Status post open cholecystectomy and drainage of abscess. Intraoperative wound culture grows Escherichia coli. Continue ciprofloxacin for now. (3) Hypothyroidism Current Visit: Yes Status: Chronic Qualifiers: Hypothyroidism type: unspecified Qualified Code(s): E03.9 - Hypothyroidism , unspecified (4) Anxiety Current Visit: Yes Status: Chronic (5) Depression Current Visit: Yes Status: Chronic Qualifiers: Depression Type: unspecified Qualified Code(s): F32.9 - Major depressive disorder, single episode, unspecified (6) COPD (chronic obstructive pulmonary disease) Current Visit: Yes Status: Chronic Qualifiers: COPD type: unspecified COPD Qualified Code(s): J44.9 - Chronic obstructive pulmonary disease, unspecified (7) CAD (coronary artery disease) Current Visit: Yes Status: Chronic Qualifiers: Coronary Disease-Associated Artery/Lesion type: [place] artery [place] vs. transplanted heart: [place] heart Associated angina: without angina Qualified Code(s): I25.10 - Atherosclerotic heart disease of [place] coronary artery without angina pectoris - Subjective Interval history: No new complaints. Tolerates oral diet, no nausea/vomiting, abdominal pain. Awaiting transfer to [facility] for higher level of care. - Constitutional Vitals: Temp Pulse Resp BP Pulse Ox 98.1 F 80 18 126/67 96 02/08/17 15:32 02/08/17 15:32 02/08/17 15:32 02/08/17 15:32 02/08/17 15:32 General appearance: Present: cooperative, A&O X 3, answers questions appropriately Internal Medicine: Result - Labs CBC & Chem 7: 02/06/17 13:58 02/04/17 06:02 - ABG Interpretation ABG results: ABG ABG pH 7.44 pH Units (7.32-7.45) 01/31/17 17:07 ABG pCO2 47 mmHg (35-45) H 01/31/17 17:07 ABG pO2 56 mmHg (85-104) L 01/31/17 17:07 ABG O2 Saturation 90 % (95-98) L 01/31/17 17:07 - VTE Documentation of Mechanical Device: Intermittent pneumatic compression device Consult Discharge Plan - Plan Referrals: Mike Galindo MD [Non-Partnered Physician] - 02/10/17 1:50 pm Chris Leo CNP [Primary Care Provider] -
== END 2017-02-08 17:02 | disposition critical access hospital (66) | DRG 409 ==
LOC: 3ANU → SUATTDRO 06:34
PROVIDERS: ADMIT Family Medicine; ATTEND Internal Medicine